=== PATIENT | male | born 1940 | race Caucasian/White ===

== ENCOUNTER 2017-09-01 11:34 | Day surgery (SDC) | payer MEDICARE ==
[~2017-09-01] VITALS: Ht 162.6 cm; Wt 73.5 kg
[2017-09-01 11:33] VITALS: BP 138/86
[~2017-09-01 11:34] MED LIST: ALLO100T PO; AMLO10TA2 PO; AMLO5TAB2 PO; APIX5TAB PO; ASPI-586 PO; HCT25T PO; HYDR-34 PO; HYDROCHLOROT PO; LEVO50TA6 PO; LORA-404 PO; LVT.025T PO; LVT.05T PO; METO-272 PO; METO-370 PO; METO25TA PO; MTP25TSR PO; OMEP40CA36 PO; PRAV40TA PO; PRAV40TA2 PO; PRAV80TA2 PO
[2017-09-01] MEDS ORDERED: ceFAZolin 1 GM/NS 50 ML IVPB IV ONE ×2 (12:00)
[2017-09-01] MEDS ORDERED: oxyCODONE ER 10 MG (OxyCONTIN CR) TAB PO ONE ×2 (12:30→17:30)
[2017-09-01] MEDS ORDERED: PREGABALIN 75 MG (LYRICA) CAP PO ONE ×2 (12:30→17:30)
[2017-09-01] MEDS ORDERED: CELECOXIB 100 MG (CeleBREX) CAP PO ONE ×2 (12:30→17:30)
[2017-09-01] MEDS ORDERED: KETOROLAC 30 MG/ML VIAL IV SCH (12:30)
[2017-09-01] MEDS ORDERED: morphine INJ 10 MG/ML 1ML (SYR OR VIAL) IV PRN ×2 (12:30→17:30)
[2017-09-01] MEDS ORDERED: ACETAMINOPHEN 500 MG TAB (TYLENOL) PO ONE ×2 (12:30→17:30)
--- NOTE | 2017-09-01 12:52 | Progress Note-Pre Operative ---
Pre-Operative Progress Note H&P Reviewed The H&P was reviewed, patient examined and no changes noted. Date Seen by Provider: Aug 05, 2017 Time Seen by Provider: 15:00 Date H&P Reviewed: Sep 01, 2017 Time H&P Reviewed: 12:52 Pre-Operative Diagnosis: Ventral hernia. Right inguinal hernia LEX WILKERSON MD Sep 01, 2017 12:52 pm
[2017-09-01] MEDS ORDERED: MIDAZOLAM 2 MG/2 ML (VERSED) VIAL ONE ×2 (13:09→13:39)
[2017-09-01] MEDS ORDERED: MIDAZOLAM 2 MG/2 ML (VERSED) VIAL IV ONE (13:15)
[2017-09-01] MEDS: LACTATED RINGERS 1,000 ML IV PRN ×3 (13:22→16:55)
[2017-09-01] MEDS ORDERED: LIDOCAINE PF 2% 5 ML (XYLOCAINE) VIAL ONE (13:38)
[2017-09-01] MEDS ORDERED: proPOfol 200 MG/20 ML (DIPRIVAN) VIAL IV ONE (13:38)
[2017-09-01] MEDS ORDERED: SUCCINYLCHOLINE INJ 100 MG/5 ML SYR ONE (13:38)
[2017-09-01] MEDS ORDERED: SEVOFLURANE (ULTANE) 15 ML INHAL SOLN ONE ×10 (13:40→16:46)
[2017-09-01] MEDS ORDERED: KETAMINE HCL 100 MG/ML 5 ML VIAL ONE (13:41)
[2017-09-01] MEDS ORDERED: BUP/EPI 0.5% 1:200,000 (MARCAINE) 10ML VIAL IJ ONE (13:44)
[2017-09-01] MEDS ORDERED: ROCURONIUM 50 MG/5 ML (ZEMURON) VIAL IV ONE (14:33)
[2017-09-01] MEDS ORDERED: NEOSTIGMINE (BLOXIVERZ ) 1 MG/1ML 10 ML VIAL ONE (16:52)
[2017-09-01] MEDS ORDERED: GLYCOPYRROLATE 0.2 MG/ML (ROBINUL) 2 ML VIAL ONE (16:52)
[2017-09-01] MEDS ORDERED: MEPERIDINE (DEMEROL) INJ 50 MG/ML ONE (17:17)
--- NOTE | 2017-09-01 17:24 | Operative Report ---
Operative Report Date of Procedure/Surgery Sep 01, 2017 Surgeon (s) LEX WILKERSON MD Hot Blaster (s): N/A Post-Operative Diagnosis Same Procedure Performed 1. Robotic assisted repair of right inguinal hernia with mesh 2. Robotic assisted repair of ventral hernia with mesh Description of Procedure Anesthesia Type: General Estimated blood loss (mL): Minimal Specimen(s) collected/removed None Description of the Procedure Indication for procedures: This gentleman presented with a symptomatic right inguinal hernia and a ventral hernia, superior to his umbilicus. He was offered minimally invasive repair with robotic assistance and mesh reinforcement. Informed consent was obtained after reviewing the operative details and complications of hematoma, infection of the mesh, recurrence of the hernia and cardiorespiratory dysfunction. Description of the procedures: 1. Robotic assisted repair of right inguinal hernia with mesh: He was placed supine on the operative table and general anesthesia induced using an endotracheal tube. A gram of Ancef was administered intravenously as prophylaxis against wound infection. Sequential compression devices were placed around his legs, to minimize the risk of venous thrombosis. A Rivera catheter was placed to decompress the bladder during surgery. It was removed at the end of the operation. Abdomen was prepared and draped in the usual sterile manner. Pneumoperitoneum was established using a Veress needle introduced over the right subcostal margin , along the mid-clavicular line. Intra-abdominal pressure was maintained at 15 mmHg, using carbon dioxide insufflation. A 12 mm trocar was placed and anatomy visualized using the 30, 3-dimensional, high definition laparoscope associated with da Valencell system. A direct inguinal hernia and the ventral hernia containing omentum were confirmed. Under direct view, I placed an 8 mm trocar over each side of the abdomen and the patient was turned into steep Trendelenburg position, to displace loops of bowel out of the pelvis. Peritoneum was incised laterally, extending across to the midline using the hook cautery, entering the preperitoneal space. The hernia sac was completely reduced out of the inguinal canal and the defect closed using a 20VLOC suture with the robotic assistance. It was then reinforced with the polypropylene mesh, preshaped to fit into the preperitoneal space, measuring 10.6 cm in length by 6 cm in width. It was secured to Eric' s ligament and the lateral abdominal muscles with 2-0 Vicryl sutures with the robotic assistance. Intra-abdominal pressure was then reduced to 12 mmHg, to facilitate closing the peritoneum without any tension. This was completed using 20VLOC sutures with the robotic assistance. We then turned our attention to the ventral hernia. 2. Robotic assisted repair of ventral hernia with mesh: The robotic system was undocked, in preparation for positioning the patient. An additional 12 mm trocar was placed over the right side of the abdomen, along the midaxillary line robotic system was then docked in place. Omentum was taken down using the hook cautery, revealing a defect measuring about 2 cm in diameter. It was closed using 0V LOC suture(nonabsorbable) with robotic assistance. The repair was then reinforced with polypropylene mesh assuring 15.2 cm in length by 10.5 cm in width. The mesh was held up using a self-retaining balloon system and secured to the abdominal musculature with 20V LOC sutures, using robotic assistance. Hemostasis was satisfactory and the operation concluded. The fascia over each of the incisions was closed using #1 Vicryl. Skin incisions were closed with 4-0 Vicryl, in a subcuticular fashion. 0.5 percent Marcaine with epinephrine was infiltrated along the incisions, both pre- preemptively and at the conclusion of the operation. He tolerated the procedure well, was extubated in the operating room and taken to the recovery room in a stable condition. Findings of the Procedure See op report Allergies and Home Medications Allergies Coded Allergies: apixaban (Unverified Allergy, Intermediate, RASH, 09/01/17) Home Medications Allopurinol 100 Mg Tablet, 100 MG PO DAILY, (Reported) Amlodipine Besylate 10 Mg Tablet, 10 MG PO DAILY, (Reported) Aspirin 81 Mg Tablet.dr, 81 MG PO DAILY, (Reported) Levothyroxine Sodium 50 Mcg Tablet, 50 MCG PO DAILY, (Reported) Lorazepam 0.5 Mg Tablet, 0.5 MG PO BID, (Reported) Metoprolol Succinate 50 Mg Tab.er.24h, 50 MG PO DAILY, (Reported) Omeprazole 40 Mg Capsule.dr, 40 MG PO DAILY, (Reported) Pravastatin Sodium 40 Mg Tablet, 40 MG PO EVENING, (Reported) LEX WILKERSON MD Sep 01, 2017 5:24 pm
[2017-09-01] MEDS ORDERED: HYDR-3812 PO (17:27)
--- NOTE | 2017-09-01 17:28 | Discharge Inst-Simple/Standard ---
Discharge Inst-Standard Discharge Medications New, Converted or Re-Newed RX: RX on Chart Patient Instructions/Follow Up Plan of Care/Instructions/FU: Band-Aids off in 48 hours. Follow-up in 4 weeks. To use the abdominal binder while moving around, for 3 weeks Activity as Tolerated: No Goal: No lifting over 10 pounds Discharge Diet: No Restrictions LEX WILKERSON MD Sep 01, 2017 5:28 pm
[2017-09-01] MEDS ORDERED: ONDANSETRON 4 MG/2 ML (SDV) Z0FRAN IVP PRN (17:30)
[2017-09-01] MEDS ORDERED: morphine INJ 10 MG/ML 1ML (SYR OR VIAL) IVP PRN (17:30)
[2017-09-01] MEDS ORDERED: MEPERIDINE (DEMEROL) INJ 50 MG/ML IVP PRN (17:30)
[2017-09-01 18:35] VITALS: BP 118/64
[2017-09-01 19:19] VITALS: BP 122/69
[2017-09-01] MEDS ORDERED: LORazepam 1 MG (ATIVAN) TAB PO PRN ×3 (22:15)
[2017-09-01] MEDS ORDERED: D5 1/2 NS 1000 ML IV SOLUTION 1,000 ML IV PRN (22:15)
[2017-09-01] MEDS ORDERED: SENNA W/DOCUSATE (SENOKOT S) TABLET PO PRN (22:15)
[2017-09-01] MEDS ORDERED: LORazepam INJ 2 MG/ML (ATIVAN) VIAL IV PRN ×4 (22:15)
[2017-09-01] MEDS ORDERED: ANTACID SUSP 30 ML UDC (MYLANTA) PO PRN (22:15)
[2017-09-01] MEDS ORDERED: ONDANSETRON 4 MG/2 ML (SDV) Z0FRAN IV PRN (22:15)
[2017-09-02] VITALS: BP 132/76
[2017-09-02 04:00] VITALS: BP 133/85
[2017-09-02] MEDS ORDERED: THIAMINE 100 MG (VITAMIN B-1) TAB PO SCH (07:00)
[2017-09-02] MEDS ORDERED: MULTIVIT W/MINERALS TAB (THERAGRAN M) PO SCH (07:00)
[2017-09-02 07:30] VITALS: BP 129/74
[2017-09-02] MEDS ORDERED: MAGNESIUM OXIDE (MAG-OX)400 MG TAB PO SCH (09:00)
[2017-09-02] MEDS ORDERED: FOLIC ACID 1 MG TAB PO SCH (09:00)
--- NOTE | 2017-09-02 09:31 | Progress Note-Standard ---
Standard Progress Note Progress Notes/Assess & Plan Date Seen by Provider: Sep 02, 2017 Time Seen by Provider: 09:31 Progress/Assessment & Plan doing well. Could be discharged home. Final Diagnosis right inguinal hernia. Ventral hernia LEX WILKERSON MD Sep 02, 2017 9:31 am
== END 2017-09-02 11:40 | disposition home or self-care (01) ==
LOC: SDC 11:34 → 4TH 18:30 → SDC 09-02 11:40
PROVIDERS: ATTEND Surgery
DX: K40.90 Unilateral inguinal hernia, without obstruction or gangrene, not specified as recurrent (principal); K43.9 Ventral hernia without obstruction or gangrene; I10 Essential (primary) hypertension; E78.5 Hyperlipidemia, unspecified; K21.9 Gastro-esophageal reflux disease without esophagitis; E03.9 Hypothyroidism, unspecified; Z79.899 Other long term (current) drug therapy
CPT/HCPCS: 94664

== ENCOUNTER → 2018-05-11 | Outpatient (CLI) | payer MEDICARE ==
[~2018-05-11] MED LIST changes: +ACHD5005 PO
--- NOTE | 2018-05-11 10:56 | Diagnostic Imaging Report ---
INDICATION: Chronic low back pain. AP and lateral views of the lumbar spine are obtained. FINDINGS: There is mild left convexity curvature of lower lumbar spine. There is diffuse disc space narrowing and prominent endplate spurring most pronounced from L3 through S1. Associated degenerative facet arthropathy greater on the right at L4-L5 and L5-S1. No fracture is seen. IMPRESSION: Lower lumbar degenerative disc disease and degenerative facet arthropathy at L4-L5 and L5-S1, greater on the right. No definite acute abnormality is seen. Dictated by: Dictated on workstation # [id number]
== END ==
LOC: RAD 10:34
PROVIDERS: ATTEND Family Medicine
DX: M51.36 Other intervertebral disc degeneration, lumbar region (principal); M46.86 Other specified inflammatory spondylopathies, lumbar region
CPT/HCPCS: 72100

== ENCOUNTER → 2018-06-02 | Outpatient (CLI) | payer MEDICARE ==
--- NOTE | 2018-06-02 12:51 | Diagnostic Imaging Report ---
PROCEDURE: MRI lumbar spine. TECHNIQUE: Multiplanar, multisequence MRI of the lumbar spine was performed without contrast. INDICATION: Chronic low back pain. COMPARISON: No prior MRI of the lumbar spine is available for comparison. FINDINGS: Curvature of the lumbar spine is normal. There is minimal anterolisthesis of L5 on S1. The vertebral body heights and marrow signal are normal. No acute compression fracture is detected. There is multilevel degenerative disc disease with variable disc space narrowing and desiccation. The conus is unremarkable at the T12-L1 level. T12-L1: The central canal is widely patent. Neuroforamina are patent. L1-L2: Unremarkable. L2-L3: Central canal is widely patent. Mild left neuroforaminal narrowing is seen due to left far lateral broad-based disc/osteophyte complex. Right neuroforamen is patent. L3-L4: There is broad-based disc/osteophyte complex flattening the ventral thecal sac. There are also degenerative facet changes. No significant neuroforaminal or central canal stenosis is seen, however. L4-L5: There is broad-based disc/osteophyte complex and facet changes noted. There is moderate right neuroforaminal stenosis due to right far lateral broad-based disc/osteophyte complex. Central canal and left neuroforamen are patent. L5-S1: Degenerative facet changes are noted. Central canal is widely patent. There is moderate left and mild right neuroforaminal stenosis. The paraspinous tissues are unremarkable. IMPRESSION: Multilevel lumbar spondylosis with multilevel neuroforaminal stenosis, described level by level above. No acute compression fracture is seen. Dictated by: Dictated on workstation # [id number]
== END ==
LOC: RAD 11:26
PROVIDERS: ATTEND Physician Assistant
DX: M99.72 Connective tissue and disc stenosis of intervertebral foramina of thoracic region (principal); M51.36 Other intervertebral disc degeneration, lumbar region; M47.816 Spondylosis without myelopathy or radiculopathy, lumbar region
CPT/HCPCS: 72148

== ENCOUNTER 2018-07-15 08:15 | Outpatient (RCR) | payer MEDICARE ==
[~2018-07-15 08:15] MED LIST changes: -AMLO10TA2 PO; +AMLO10TA6 PO
== END 2018-07-17 | disposition home or self-care (01) ==
PROVIDERS: ATTEND Orthopaedic Surgery Orthopaedic Surgery of the Spine
DX: M54.16 Radiculopathy, lumbar region (principal)

== ENCOUNTER 2018-08-05 08:26 | Outpatient (RCR) | payer MEDICARE | END 2018-08-05 09:54 | disposition home or self-care (01) | PROVIDERS: ATTEND Orthopaedic Surgery Orthopaedic Surgery of the Spine | DX: M54.16 Radiculopathy, lumbar region (principal) ==

== ENCOUNTER → 2019-04-17 | Outpatient (CLI) | payer MEDICARE ==
[~2019-04-17] MED LIST changes: -AMLO10TA6 PO; +AMLO10TA7 PO
--- NOTE | 2019-04-17 11:48 | Diagnostic Imaging Report ---
INDICATION: Weight loss Comparison made with prior examination 03/20/2015. PA and lateral views were obtained. FINDINGS: The heart size, mediastinal configuration, and pulmonary vascularity are within normal limits. There is no pleural effusion, pneumothorax, or pneumonia. The osseous structures are unremarkable. IMPRESSION: No acute cardiopulmonary abnormality. Dictated by: Dictated on workstation # [id number]
== END ==
LOC: RAD 11:19
PROVIDERS: ATTEND Nurse Practitioner Family
DX: R63.4 Abnormal weight loss (principal)
CPT/HCPCS: 71046

== ENCOUNTER → 2019-04-28 | Outpatient (CLI) | payer MEDICARE ==
--- NOTE | 2019-04-28 13:51 | Diagnostic Imaging Report ---
PROCEDURE: MR imaging of the brain without contrast. TECHNIQUE: Multiplanar, multisequence MR imaging of the brain was performed without contrast. INDICATION: Dizzy spells, falls, mainly when bending over or standing up. Gait instability. CORRELATION STUDY: None. FINDINGS: Generalized atrophic changes with prominence of the ventricles and sulci. There are scattered areas of hyperintense T2 signal change, nonspecific but favor likely mild changes of small vessel ischemic disease or senescent-type changes. There is no restricted area of diffusion to suggest an acute area of infarct. No significant gradient echo signal abnormality. The posterior fossa demonstrates no acute findings. The cerebellopontine angles appear unremarkable. Visualized portions of the seventh and eighth cranial nerves appear unremarkable. There is a mildly prominent rightward course of the basilar artery. Normal expected intracranial flow voids. The craniocervical junction as well as midline structures including sella are unremarkable. IMPRESSION: 1. Negative for acute intracranial abnormality. Generalized age-related changes are suggested. Dictated by: Dictated on workstation # [id number]
== END ==
LOC: RAD 11:44
PROVIDERS: ATTEND Nurse Practitioner Family
DX: R42 Dizziness and giddiness (principal); R26.89 Other abnormalities of gait and mobility; R29.6 Repeated falls
CPT/HCPCS: 70551

== ENCOUNTER → 2019-10-27 | Outpatient (CLI) | payer MEDICARE ==
[~2019-10-27] MED LIST changes: -METO-370 PO; +METO50TA7 PO; +OMEP40CA27 PO
--- NOTE | 2019-10-27 14:57 | Diagnostic Imaging Report ---
PROCEDURE: MRI lumbar spine. TECHNIQUE: Multiplanar, multisequence MRI of the lumbar spine was performed without contrast. INDICATION: Low back pain and right hip pain. Correlation is made with prior MRI of the lumbar spine from 06/02/2018. FINDINGS: Curvature of the lumbar spine is normal. There is minimal anterolisthesis of L5 on S1. Vertebral body heights are well maintained. The marrow signal intensity is unremarkable apart from occasional benign hemangiolipomas. No acute compression fracture is detected. There is generalized degenerative disc disease with variable disc space narrowing and desiccation. This is similar to prior exam. The conus is unremarkable at the T12-L1 level. T12-L1: Central canal is patent. Neural foramina are patent. L1-L2: Central canal and neural foramina are widely patent. L2-L3: Central canal is patent. There appears to be some narrowing of the lateral recesses bilaterally. There continues to be moderate left neuroforaminal narrowing. Right neural foramen is patent. L3-L4: Broad-based disc/osteophyte complex flattens the ventral thecal sac. Central canal is patent. Left neural foramen is patent. There may be mild right neuroforaminal narrowing due to endplate osteophytes. L4-L5: A broad-based disc/osteophyte complex significantly narrows the right lateral recess as well as moderate right neuroforaminal stenosis. Left neural foramen and central canal are patent. There are hypertrophic facet changes. L5-S1: Central canal is patent. There are degenerative facet changes. Moderate left and mild right neuroforaminal stenosis is seen. Paraspinous tissues are unremarkable. IMPRESSION: Multilevel lumbar spondylosis with multilevel lateral recess and neuroforaminal stenosis described level by level above. No significant central canal stenosis is seen. No acute compression fracture is identified. Overall appearance of the lumbar spine is very similar to prior MRI from 06/02/2018. Dictated by: Dictated on workstation # [id number]
== END ==
LOC: RAD 12:45
PROVIDERS: ATTEND Physician Assistant
DX: M48.07 Spinal stenosis, lumbosacral region (principal); M47.816 Spondylosis without myelopathy or radiculopathy, lumbar region; M51.36 Other intervertebral disc degeneration, lumbar region
CPT/HCPCS: 72148

== ENCOUNTER 2021-10-25 20:43 | Emergency (ER) | payer MEDICARE ==
[~2021-10-25] VITALS: Ht 170 cm; Wt 68.0 kg
[~2021-10-25 20:43] MED LIST changes: +AMLO-251 PO; -AMLO10TA7 PO; -OMEP40CA27 PO; +OMEP40CA6 PO
[2021-10-25 21:23] LABS: BASOPHILS % (AUTO) 0 % (0-10); EOSINOPHILS # (AUTO) 0.1 10^3/uL (0.0-0.3); EOSINOPHILS % (AUTO) 1 % (0-10); HEMATOCRIT 44 % (40-54); HEMOGLOBIN 14.9 g/dL (13.3-17.7); LYMPHOCYTES # (AUTO) 2.3 10^3/uL (1.0-4.0); LYMPHOCYTES % (AUTO) 23 % (12-44); MEAN CORPUSCULAR HEMOGLOBIN 33 pg (25-34); MEAN CORPUSCULAR HGB CONC 34 g/dL (32-36); MEAN CORPUSCULAR VOLUME 97 fL (80-99); MEAN PLATELET VOLUME 9.8 fL (9.0-12.2); MONOCYTES % (AUTO) 10 % (0-12); NEUTROPHILS # (AUTO) 6.7 10^3/uL (1.8-7.8); NEUTROPHILS % (AUTO) 66 % (42-75); PLATELET COUNT 232 10^3/uL (130-400); WHITE BLOOD COUNT 10.2 10^3/uL (4.3-11.0)
--- NOTE | 2021-10-25 21:34 | ED Upper Extremity ---
General Chief Complaint: Upper Extremity Stated Complaint: L ARM SWELLING, WARM,TENDER Nursing Triage Note: patient verbalized x3 months weakness and tingling in rt arm. states Wednesday morning, swelling in wrist. Source: patient Exam Limitations: no limitations (KP CHRISTIANSEN APRN) History of Present Illness Date Seen by Provider: Oct 25, 2021 Time Seen by Provider: 21:32 Initial Comments To ER with pain redness and swelling to the right wrist that began yesterday. 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 No fevers or chills no injury. History of blood clot in one of his legs remotely. Not currently on any anticoagulants. Onset: just prior to arrival Severity: moderate Pain/Injury Location: right wrist Method of Injury: unknown Modifying Factors: Worse With Movement (KP CHRISTIANSEN APRN) Allergies and Home Medications Allergies Coded Allergies: apixaban (Unverified Allergy, Intermediate, RASH, 09/01/17) Patient Home Medication List Home Medication List Reviewed: Yes (KP CHRISTIANSEN APRN) Allopurinol (Allopurinol) 100 Mg Tablet, 100 MG PO DAILY, (Reported) Entered as Reported by: VALORIE LEDEZMA on 08/26/17 1043 Amlodipine Besylate (Amlodipine Besylate) 10 Mg Tablet, 10 MG PO DAILY, (Reported) Entered as Reported by: VALORIE LEDEZMA on 08/26/17 1043 Aspirin (Aspir 81) 81 Mg Tablet.dr, 81 MG PO DAILY, (Reported) Entered as Reported by: VALORIE LEDEZMA on 08/26/17 1043 Hydrocodone Bit/Acetaminophen (Lortab 5 Mg Tablet) 1 Each Tablet, 1-2 TAB PO 4- 6HR PRN for PAIN Prescribed by: LEX WILKERSON on 09/01/17 1727 Levothyroxine Sodium (Levothyroxine Sodium) 50 Mcg Tablet, 50 MCG PO DAILY, (R eported) Entered as Reported by: VALORIE LEDEZMA on 08/26/17 1043 Lorazepam (Ativan) 0.5 Mg Tablet, 0.5 MG PO BID, (Reported) Entered as Reported by: VALORIE LEDEZMA on 08/26/17 1043 Metoprolol Succinate (Metoprolol Succinate) 50 Mg Tab.er.24h, 50 MG PO DAILY, (Reported) Entered as Reported by: VALORIE LEDEZMA on 08/26/17 1043 Omeprazole (Omeprazole) 40 Mg Capsule.dr, 40 MG PO DAILY, (Reported) Entered as Reported by: VALORIE LEDEZMA on 08/26/17 1043 Pravastatin Sodium (Pravastatin Sodium) 40 Mg Tablet, 40 MG PO EVENING, (Reported) Entered as Reported by: VALORIE LEDEZMA on 08/26/17 1043 Review of Systems Constitutional: see HPI EENTM: see HPI Respiratory: no symptoms reported Cardiovascular: no symptoms reported Genitourinary: no symptoms reported Musculoskeletal: see HPI Skin: see HPI Psychiatric/Neurological: No Symptoms Reported (KP CHRISTIANSEN APRN) Past Equmsff-Lciewl-Ogqydp Hx Immunizations Up To Date First/Initial COVID19 Vaccinat: yes Second COVID19 Vaccination Lamont: yes (KP CHRISTIANSEN APRN) Seasonal Allergies Seasonal Allergies: Yes (MILD) (KP CHRISTIANSEN APRN) Past Medical History Deep Vein Thrombosis, High Cholesterol, Hypertension Reproductive Disorders: No Sexually Transmitted Disease: No HIV/AIDS: No Kidney Stones Diverticulosis, Polyps Chronic Back Pain Loss of Vision: Denies Hearing Impairment: Denies Adverse Reaction/Blood Tranf: No (N/A) (KP CHRISTIANSEN APRN) Family Medical History Abdominal aortic aneurysm G8 BROTHER (BRAIN ANEURSYM) Cardiovascular disease 19 FATHER 19 MOTHER Completed stroke 19 MOTHER Drug abuse G8 BROTHER Hypertension 19 FATHER 19 MOTHER G8 BROTHER Myocardial infarction 19 FATHER No Family History of: AIDS El's disease Alcoholism Alzheimer's disease Arthritis Asthma Cataracts Colon cancer Dementia Diabetes mellitus Dysphasia Glaucoma Kidney disease Parkinson's disease Prostate cancer Psychosocial problem Respiratory disorder Seizure disorder Severe allergy Thyroid disease Tuberculosis Heart Disease, Hypertension, Stroke, Vascular Disease (KP CHRISTIANSEN APRN) Physical Exam Vital Signs Vital Signs - First Documented 10/25/21 21:13 Temp 36.9 Pulse 92 Resp 20 B/P (MAP) 117/68 (84) Pulse Ox 94 O2 Delivery Room Air (BENNY,ERIC K DO) Vital Signs Capillary Refill : Less Than 3 Seconds (KP CHRISTIANSEN APRN) Height, Weight, BMI Height: 5'4.00" Weight: 162lbs. 2.0oz. [id number]; 23.00 BMI Method:Stated General Appearance: WD/WN, no apparent distress HEENT: PERRL/EOMI, normal ENT inspection Respiratory: no respiratory distress, no accessory muscle use Gastrointestinal: normal bowel sounds, non tender, soft Shoulder: normal inspection, non-tender Elbow/Forearm: normal inspection, non-tender, Right Wrist: Yes limited ROM, Yes pain, Yes soft tissue tenderness, Yes swelling (Erythema tenderness to palpation without open wound. This is confined to the dorsal aspect of the right wrist. The volar aspect has a normal appearance. There is no erythema or swelling proximal to the wrist. The hand itself is not involved and is without swelling.) Hand: normal inspection, non-tender Neurologic/Psychiatric: alert, normal mood/affect, oriented x 3 Skin: normal color, warm/dry (KP CHRISTIANSEN APRN) Progress/Results/Core Measures Results/Orders Lab Results Laboratory Tests Test 10/25/21 21:19 Range/Units White Blood Count 10.2 4.3-11.0 10^3/uL Red Blood Count 4.55 4.30-5.52 10^6/uL Hemoglobin 14.9 13.3-17.7 g/dL Hematocrit 44 40-54 % Mean Corpuscular Volume 97 80-99 fL Mean Corpuscular Hemoglobin 33 25-34 pg Mean Corpuscular Hemoglobin Concent 34 32-36 g/dL Red Cell Distribution Width 13.9 10.0-14.5 % Platelet Count 232 130-400 10^3/uL Mean Platelet Volume 9.8 9.0-12.2 fL Immature Granulocyte % (Auto) 0 % Neutrophils (%) (Auto) 66 42-75 % Lymphocytes (%) (Auto) 23 12-44 % Monocytes (%) (Auto) 10 0-12 % Eosinophils (%) (Auto) 1 0-10 % Basophils (%) (Auto) 0 0-10 % Neutrophils # (Auto) 6.7 1.8-7.8 10^3/uL Lymphocytes # (Auto) 2.3 1.0-4.0 10^3/uL Monocytes # (Auto) 1.0 0.0-1.0 10^3/uL Eosinophils # (Auto) 0.1 0.0-0.3 10^3/uL Basophils # (Auto) 0.0 0.0-0.1 10^3/uL Immature Granulocyte # (Auto) 0.0 0.0-0.1 10^3/uL D-Dimer 1.32 H 0.00-0.49 UG/ML Sodium Level 136 135-145 MMOL/L Potassium Level 3.7 3.6-5.0 MMOL/L Chloride Level 97 L 98-107 MMOL/L Carbon Dioxide Level 21 21-32 MMOL/L Anion Gap 18 H 5-14 MMOL/L Blood Urea Nitrogen 13 7-18 MG/DL Creatinine 0.92 0.60-1.30 MG/DL Estimat Glomerular Filtration Rate 79 BUN/Creatinine Ratio 14 Glucose Level 102 70-105 MG/DL Calcium Level 9.6 8.5-10.1 MG/DL (ERIC ZAPATA DO) Medications Given in ED Current Medications Medications Dose Ordered Sig/Solange Route Start Time Stop Time Status Last Admin Dose Admin Acetaminophen/ Hydrocodone Bitart 1 ea Q4H PRN PO 10/25/21 22:15 10/25/21 22:28 DC 10/25/21 22:27 1 EA Colchicine 1.8 mg ONCE ONCE PO 10/25/21 22:15 10/25/21 22:16 DC 10/25/21 22:27 1.8 MG (BENNYTIANNAA Anil VERAS) Vital Signs/I&O 10/25/21 10/25/21 21:13 22:27 Temp 36.9 36.9 Pulse 92 92 Resp 20 20 B/P (MAP) 117/68 (84) 117/68 Pulse Ox 94 94 O2 Delivery Room Air Room Air (BENNYTIANNAA K DO) Blood Pressure Mean: 84 Departure Communication (Admissions) Not have the appearance of a DVT has only the dorsum of the wrist is erythematous and swollen. The fingers are spared and the remainder of the arm is spared. 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 Supporting this, reports that he is quite a heavy drinker of alcohol. (KP CHRISTIANSEN APRN) Impression Primary Impression: Gout of right wrist Disposition: 01 HOME, SELF-CARE Condition: Stable Departure-Patient Inst. Decision time for Depature: 22:07 (KP CHRISTIANSEN APRN) Referrals: ALISON SHAH MD (PCP/Family) Primary Care Physician Patient Instructions: Gout (DC) Add. Discharge Instructions: 1. Wear the splint for comfort. Take the hydrocodone for pain as directed. Do not mix with this with any alcohol. Take the colchicine tablet 1 hour after you get home. All discharge instructions reviewed with patient and/or family. Voiced understanding. ATTENDING PHYSICIAN NOTE: I WAS PHYSICALLY PRESENT ER PHYSICIAN WHEN THIS PATIENT WAS IN ER, BUT I WAS NOT INVOLVED IN ANY DECISION MAKING OR ANY CARE OF THIS PATIENT. (ERIC ZAPATA DO) KP CHRISTIANSEN APRN Oct 25, 2021 21:34 ERIC ZAPATA DO Oct 26, 2021 00:30
[2021-10-25 21:48] LABS: POTASSIUM 3.7 MMOL/L (3.6-5.0)
[2021-10-25 21:49] LABS: CALCIUM 9.6 MG/DL (8.5-10.1)
[2021-10-25 21:54] LABS: CREATININE SERUM 0.92 MG/DL (0.60-1.30)
[2021-10-25] MEDS ORDERED: COLCHICINE 0.6 MG (COLCRYS) TABLET PO ONE (22:15)
[2021-10-25 22:27] VITALS: BP 117/68
--- NOTE | 2021-10-25 22:36 | Diagnostic Imaging Report ---
INDICATION: Right wrist pain, swelling. COMPARISON: None. EXAMINATION: Three views of the right wrist. FINDINGS: Moderate degenerative joint disease. There is no bony erosion, fracture or dislocation. Atherosclerotic disease is seen in the radial artery. IMPRESSION: No acute fracture or dislocation. Dictated by: Dictated on workstation # [id number]
== END 2021-10-25 22:28 | disposition home or self-care (01) ==
LOC: EDUNIT# 20:43 → ER 20:49
DX: M10.9 Gout, unspecified (principal); I10 Essential (primary) hypertension; E78.00 Pure hypercholesterolemia, unspecified; G89.29 Other chronic pain; M54.9 Dorsalgia, unspecified; Z79.899 Other long term (current) drug therapy; Z79.82 Long term (current) use of aspirin; Z79.891 Long term (current) use of opiate analgesic
CPT/HCPCS: 36415; 73110; 80048; 85025; 85379

== ENCOUNTER 2022-04-09 14:32 | Inpatient (IN) | payer MEDICARE ==
[~2022-04-09] VITALS: Ht 162.6 cm; Wt 71.9 kg
--- NOTE | 2022-04-09 14:52 | ED General ---
General Stated Complaint: BRADYCARDIA Source of Information: Patient Exam Limitations: No Limitations History of Present Illness Date Seen by Provider: Apr 09, 2022 Time Seen by Provider: 14:40 Initial Comments Patient is an 81-year-old male who presents to the emergency department referred by his primary care physician for profound bradycardia, suspicion for third- degree AV block. Patient states that he started noticing some swelling in his ankles and lower legs about a week ago today. He went to his doctor, he states that they changed his amlodipine from 10 mg to 5 mg. He had persistent swelling and followed up today where he states his doctor cut his metoprolol succinate ER dose from 50-25 and sent him to the ER. Patient denies any chest pain. He is not really short of breath. No recent illnesses, no fevers, chills, cough or congestion. He has chronic urinary complaints with frequency and hesitancy. No diarrhea. He has a blood pressure of 137/67 and his heart rate is anywhere from 32 to 35 bpm. He has not started any other new medications. I did verify his med list with [facility] and he takes levothyroxine 50 mcg daily, amlodipine 5 mg pravastatin 40 mg omeprazole 40. Patient is currently in no acute distress, room air sats are 97%. All other review of systems reviewed and negative except as stated. Timing/Duration: 1 Week Severity: Moderate Modifying Factors: worse with Movement Allergies and Home Medications Allergies Coded Allergies: apixaban (Unverified Allergy, Intermediate, RASH, 09/01/17) Patient Home Medication List Home Medication List Reviewed: Yes Allopurinol (Allopurinol) 100 Mg Tablet, 100 MG PO DAILY, (Reported) Entered as Reported by: VALORIE LEDEZMA on 08/26/17 1043 Amlodipine Besylate (Amlodipine Besylate) 10 Mg Tablet, 10 MG PO DAILY, (Reported) Entered as Reported by: VALORIE LEDEZMA on 08/26/17 1043 Aspirin (Aspir 81) 81 Mg Tablet.dr, 81 MG PO DAILY, (Reported) Entered as Reported by: VALORIE LEDEZMA on 08/26/17 1043 Hydrocodone Bit/Acetaminophen (Lortab 5 Mg Tablet) 1 Each Tablet, 1-2 TAB PO 4- 6HR PRN for PAIN Prescribed by: LEX WILKERSON on 09/01/17 1727 Levothyroxine Sodium (Levothyroxine Sodium) 50 Mcg Tablet, 50 MCG PO DAILY, (Reported) Entered as Reported by: VALORIE LEDEZMA on 08/26/17 1043 Lorazepam (Ativan) 0.5 Mg Tablet, 0.5 MG PO BID, (Reported) Entered as Reported by: VALORIE LEDEZMA on 08/26/17 1043 Metoprolol Succinate (Metoprolol Succinate) 50 Mg Tab.er.24h, 50 MG PO DAILY, (Reported) Entered as Reported by: VALORIE LEDEZMA on 08/26/17 1043 Omeprazole (Omeprazole) 40 Mg Capsule.dr, 40 MG PO DAILY, (Reported) Entered as Reported by: VALORIE LEDEZMA on 08/26/17 1043 Pravastatin Sodium (Pravastatin Sodium) 40 Mg Tablet, 40 MG PO EVENING, (Reported) Entered as Reported by: VALORIE LEDEZMA on 08/26/17 1043 Review of Systems Review of Systems Constitutional: see HPI EENTM: no symptoms reported Respiratory: short of breath (minimal) Cardiovascular: no symptoms reported Gastrointestinal: no symptoms reported Genitourinary: other (prostate issues) Musculoskeletal: other (leg swelling) Skin: no symptoms reported Psychiatric/Neurological: No Symptoms Reported All Other Systems Reviewed Negative Unless Noted: Yes Past Teconmv-Vxysxh-Hnuauf Hx Immunizations Up To Date First/Initial COVID19 Vaccinat: yes Second COVID19 Vaccination Lamont: yes Seasonal Allergies Seasonal Allergies: Yes (MILD) Past Medical History Deep Vein Thrombosis, High Cholesterol, Hypertension Reproductive Disorders: No Sexually Transmitted Disease: No HIV/AIDS: No Kidney Stones Diverticulosis, Polyps Chronic Back Pain Loss of Vision: Denies Hearing Impairment: Denies Adverse Reaction/Blood Tranf: No (N/A) Family Medical History Abdominal aortic aneurysm G8 BROTHER (BRAIN ANEURSYM) Cardiovascular disease 19 FATHER 19 MOTHER Completed stroke 19 MOTHER Drug abuse G8 BROTHER Hypertension 19 FATHER 19 MOTHER G8 BROTHER Myocardial infarction 19 FATHER No Family History of: AIDS El's disease Alcoholism Alzheimer's disease Arthritis Asthma Cataracts Colon cancer Dementia Diabetes mellitus Dysphasia Glaucoma Kidney disease Parkinson's disease Prostate cancer Psychosocial problem Respiratory disorder Seizure disorder Severe allergy Thyroid disease Tuberculosis Heart Disease, Hypertension, Stroke, Vascular Disease Physical Exam Vital Signs Vital Signs - First Documented 6/23/22 14:38 Temp 36.2 Pulse 34 Resp 17 B/P (MAP) 159/75 (103) Pulse Ox 96 O2 Delivery Room Air Capillary Refill : Height, Weight, BMI Height: 5'4.00" Weight: 162lbs. 2.0oz. 73.358005ds; 23.00 BMI Method:Stated General Appearance: No Apparent Distress, WD/WN Eyes: Bilateral Eye Normal Inspection, Bilateral Eye PERRL, Bilateral Eye EOMI HEENT: PERRL/EOMI Neck: Normal Inspection Respiratory: Lungs Clear, Normal Breath Sounds, No Accessory Muscle Use, No Respiratory Distress Cardiovascular: No Murmur, Normal Peripheral Pulses, Bradycardia (30's) Gastrointestinal: Non Tender, Soft Extremity: Normal Capillary Refill, Pedal Edema (2+ biulaterally at the ankles) Neurologic/Psychiatric: Alert, Oriented x3, No Motor/Sensory Deficits, Normal Mood/Affect Skin: Normal Color, Warm/Dry Progress/Results/Core Measures Suspected Sepsis SIRS Temperature: Pulse: Respiratory Rate: Laboratory Tests 04/09/22 14:40: White Blood Count 6.7 Blood Pressure / Mean: Laboratory Tests 04/09/22 14:40: Creatinine 1.21, INR Comment 0.9, Platelet Count 174, Total Bilirubin 1.4H Results/Orders Lab Results Laboratory Tests Test 04/09/22 14:40 Range/Units White Blood Count 6.7 4.3-11.0 10^3/uL Red Blood Count 4.52 4.30-5.52 10^6/uL Hemoglobin 14.5 13.3-17.7 g/dL Hematocrit 43 40-54 % Mean Corpuscular Volume 95 80-99 fL Mean Corpuscular Hemoglobin 32 25-34 pg Mean Corpuscular Hemoglobin Concent 34 32-36 g/dL Red Cell Distribution Width 15.8 H 10.0-14.5 % Platelet Count 174 130-400 10^3/uL Mean Platelet Volume 10.9 9.0-12.2 fL Immature Granulocyte % (Auto) 0 % Neutrophils (%) (Auto) 48 42-75 % Lymphocytes (%) (Auto) 41 12-44 % Monocytes (%) (Auto) 9 0-12 % Eosinophils (%) (Auto) 2 0-10 % Basophils (%) (Auto) 1 0-10 % Neutrophils # (Auto) 3.2 1.8-7.8 X 10^3 Lymphocytes # (Auto) 2.8 1.0-4.0 X 10^3 Monocytes # (Auto) 0.6 0.0-1.0 X 10^3 Eosinophils # (Auto) 0.1 0.0-0.3 10^3/uL Basophils # (Auto) 0.1 0.0-0.1 10^3/uL Immature Granulocyte # (Auto) 0.0 0.0-0.1 10^3/uL Prothrombin Time 12.9 12.2-14.7 SEC INR Comment 0.9 0.8-1.4 Activated Partial Thromboplast Time 32 24-35 SEC Sodium Level 138 135-145 MMOL/L Potassium Level 4.0 3.6-5.0 MMOL/L Chloride Level 100 98-107 MMOL/L Carbon Dioxide Level 22 21-32 MMOL/L Anion Gap 16 H 5-14 MMOL/L Blood Urea Nitrogen 14 7-18 MG/DL Creatinine 1.21 0.60-1.30 MG/DL Estimat Glomerular Filtration Rate 61 BUN/Creatinine Ratio 12 Glucose Level 93 70-105 MG/DL Calcium Level 9.8 8.5-10.1 MG/DL Corrected Calcium 9.6 8.5-10.1 MG/DL Magnesium Level 1.5 L 1.6-2.4 MG/DL Total Bilirubin 1.4 H 0.1-1.0 MG/DL Aspartate Amino Transf (AST/SGOT) 73 H 5-34 U/L Alanine Aminotransferase (ALT/SGPT) 57 H 0-55 U/L Alkaline Phosphatase 83 40-136 U/L Myoglobin 49.3 10.0-92.0 NG/ML Troponin I < 0.028 <0.028 NG/ML Total Protein 7.4 6.4-8.2 GM/DL Albumin 4.3 3.2-4.5 GM/DL My Orders Orders - MINNIE HAIR MD Ekg Tracing (04/09/22 14:37) Cbc With Automated Diff (04/09/22 14:48) Magnesium (04/09/22 14:48) Chest 1 View, Ap/Pa Only (04/09/22 14:48) Comprehensive Metabolic Panel (04/09/22 14:48) Myoglobin Serum (04/09/22 14:48) Protime With Inr (04/09/22 14:48) Partial Thromboplastin Time (04/09/22 14:48) O2 (04/09/22 14:48) Monitor-Rhythm Ecg Trace Only (04/09/22 14:48) Lipid Panel (04/10/22 06:00) Ed Iv/Invasive Line Start (04/09/22 14:48) Bnp [place] (04/09/22 14:48) Troponin I Brandan (04/09/22 14:48) Vital Signs/I&O 04/09/22 14:38 Temp 36.2 Pulse 34 Resp 17 B/P (MAP) 159/75 (103) Pulse Ox 96 O2 Delivery Room Air Capillary Refill : ECG Initial ECG Impression Date: Apr 09, 2022 Initial ECG Impression Time: 14:44 Initial ECG Rate: 34 Initial ECG Rhythm: S.Froilan Comment Scooped ST segments, depression noted in V3 1 mm, V4 and V5 2 mm, V6 1 mm. Diagnostic Imaging Diagonstic Imaging: Xray Plain Films/CT/US/NM/MRI: chest Comments NAME: GUSTAVO ARGUELLES [facility] REC#: [id number] PT STATUS: REG ER : 1940 PHYSICIAN: MINNIE HAIR MD ADMIT DATE: 04/09/22/ER Draft Date of Exam:04/09/22 CHEST 1 VIEW, AP/PA ONLY CLINICAL INDICATION: Patient with chest pain and bradycardia. EXAM: Portable chest x-ray upright view. COMPARISON: Chest x-ray dated 03/16/2015. FINDINGS: Lungs/pleura: There is minimal right basilar atelectasis. There is no definite lung infiltrate. Lungs are clear. There is no pneumothorax. There is no pleural effusion. Mediastinum: Unremarkable. Pulmonary vasculature: Unremarkable. Heart: Cardiac silhouette is upper limits of normal. Bones/extrathoracic soft tissue: There are degenerative spurs involving the thoracic spine. IMPRESSION: There is mild right basilar atelectasis or scarring. There is no radiographic evidence of acute cardiopulmonary process. Dictated on workstation # [id number] Dict: 04/09/22 1524 Trans: 04/09/22 1527 [facility] [id number] Interpreted by: MELINDA LEDEZMA MD Electronically signed by: Departure Communication (Admissions) Time/Spoke to Admitting Phy: 15:39 discussed with jaquelin Time/Spoke to Consulting Phy: 15:[address] Blanc Impression Primary Impression: Third degree heart block Disposition: ADMITTED INPATIENT Condition: Stable Admissions Decision to Admit Reason: Admit from ER (General) Decision to Admit/Date: Apr 09, 2022 Time/Decision to Admit Time: 15:41 Departure-Patient Inst. Referrals: AISSATOU BOGGS DO (PCP/Family) Primary Care Physician MINNIE HAIR MD Apr 09, 2022 14:52
[2022-04-09 15:14] LABS: BASOPHILS # (AUTO) 0.1 10^3/uL (0.0-0.1); BASOPHILS % (AUTO) 1 % (0-10); EOSINOPHILS # (AUTO) 0.1 10^3/uL (0.0-0.3); EOSINOPHILS % (AUTO) 2 % (0-10); HEMATOCRIT 43 % (40-54); HEMOGLOBIN 14.5 g/dL (13.3-17.7); LYMPHOCYTES # (AUTO) 2.8 X 10^3 (1.0-4.0); LYMPHOCYTES % (AUTO) 41 % (12-44); MEAN CORPUSCULAR HEMOGLOBIN 32 pg (25-34); MEAN CORPUSCULAR HGB CONC 34 g/dL (32-36); MEAN CORPUSCULAR VOLUME 95 fL (80-99); MEAN PLATELET VOLUME 10.9 fL (9.0-12.2); MONOCYTES # (AUTO) 0.6 X 10^3 (0.0-1.0); MONOCYTES % (AUTO) 9 % (0-12); NEUTROPHILS # (AUTO) 3.2 X 10^3 (1.8-7.8); NEUTROPHILS % (AUTO) 48 % (42-75); PLATELET COUNT 174 10^3/uL (130-400); WHITE BLOOD COUNT 6.7 10^3/uL (4.3-11.0)
[2022-04-09 15:18] LABS: ALBUMIN 4.3 GM/DL (3.2-4.5)
[2022-04-09 15:19] LABS: CALCIUM 9.8 MG/DL (8.5-10.1)
[2022-04-09 15:21] LABS: TOTAL PROTEIN 7.4 GM/DL (6.4-8.2)
[2022-04-09 15:22] LABS: BILIRUBIN,TOTAL 1.4 MG/DL (0.1-1.0)
[2022-04-09 15:24] LABS: CREATININE SERUM 1.21 MG/DL (0.60-1.30)
[2022-04-09 15:27] LABS: INR 0.9 (0.8-1.4); MAGNESIUM 1.5 MG/DL (1.6-2.4); PROTHROMBIN TIME PATIENT 12.9 SEC (12.2-14.7)
--- NOTE | 2022-04-09 15:27 | Diagnostic Imaging Report ---
CLINICAL INDICATION: Patient with chest pain and bradycardia. EXAM: Portable chest x-ray upright view. COMPARISON: Chest x-ray dated 03/16/2015. FINDINGS: Lungs/pleura: There is minimal right basilar atelectasis. There is no definite lung infiltrate. Lungs are clear. There is no pneumothorax. There is no pleural effusion. Mediastinum: Unremarkable. Pulmonary vasculature: Unremarkable. Heart: Cardiac silhouette is upper limits of normal. Bones/extrathoracic soft tissue: There are degenerative spurs involving the thoracic spine. IMPRESSION: There is mild right basilar atelectasis or scarring. There is no radiographic evidence of acute cardiopulmonary process. Dictated by: Dictated on workstation # [id number]
[2022-04-09] MEDS ORDERED: MAGNESIUM 1 GM/100 ML IVPB 100 ML IV SCH (18:45)
[2022-04-09] MEDS ORDERED: polyethylene glycoL POWDER 17 GM (MIRALAX) PACK PO PRN (20:45)
[2022-04-09] MEDS ORDERED: ACETAMINOPHEN 325 MG TABLET PO PRN (20:45)
[2022-04-09] MEDS ORDERED: ONDANSETRON 4 MG/2 ML (SDV) Z0FRAN IV PRN (20:45)
[2022-04-09] MEDS ORDERED: MELATONIN 3 MG TABLET PO PRN (20:45)
[2022-04-09] MEDS ORDERED: ANTACID SUSP 30 ML UDC (MYLANTA) PO PRN (20:45)
[2022-04-09] MEDS ORDERED: ONDANSETRON 4 MG (ZOFRAN) ORAL DISSOLVE TAB PO PRN (20:45)
--- NOTE | 2022-04-09 21:23 | Tele-ICU Progress Note ---
Subjective Date Seen by a Provider: Apr 09, 2022 Time Seen by a Provider: 21:18 Subjective/Events-last exam see a/p Review of Systems General: No Chills, No Night Sweats, No Fatigue, No Malaise, No Appetite, No Other Sepsis Event Evaluation Height, Weight, BMI Height: 5'4.00" Weight: 162lbs. 2.0oz. 73.674910ax; 26.00 BMI Method:Stated Exam Exam Patient acknowledged, consented, and participated in this virtual visit which was conducted using real time audio/video Vital Signs Date Time Temp Pulse Resp B/P (MAP) Pulse Ox O2 Delivery O2 Flow Rate FiO2 04/09/22 21:02 92 Room Air 04/09/22 20:28 31 04/09/22 14:38 36.2 34 17 159/75 (103) 96 Room Air Height & Weight Height: 5'4.00" Weight: 162lbs. 2.0oz. 73.487757qi; 26.00 BMI Method:Stated General Appearance: No Apparent Distress, WD/WN HEENT: PERRL/EOMI Neck: Normal Inspection Respiratory: Lungs Clear, Normal Breath Sounds, No Accessory Muscle Use, No Respiratory Distress Cardiovascular: No Murmur, Normal Peripheral Pulses, Bradycardia (30's) Extremity: Normal Capillary Refill, Pedal Edema (2+ biulaterally at the ankles) Neurologic/Psychiatric: Alert, Oriented x3, No Motor/Sensory Deficits, Normal Mood/Affect Skin: Normal Color, Warm/Dry Results Lab Laboratory Tests 04/09/22 14:40 Assessment/Plan Assessment/Plan new admission cc bradycardia hpi 81 yo male sent from pcp with bradycardia and possible av block. patient complianing of recent swelling and medication change from norvasc 10 to 5. no oher symptoms. no sob. no cp reported. hr in 30s in ed. patient is also on synthroid. no n/v/d. pmhx hypothryroid, htn, dyslipemia, gerd, dvt pshx nc allergy apixaban fam hx nc ros see above for pertinent positives, all others negative vitals hr 30s, bp 160s, rr 17, afebrile video assessement done. patient is in street clothes, and appears comfortable. exam deffered as EICU is remotely monitoring from a different state. defer exam to bedside physicians and staff. er exam reviewed. per er exam no murmer on heart exam. bradycardia. labs see emar Sodium Level 138 135-145 MMOL/L Potassium Level 4.0 3.6-5.0 MMOL/L Chloride Level 100 98-107 MMOL/L Carbon Dioxide Level 22 21-32 MMOL/L Anion Gap 16 H 5-14 MMOL/L Blood Urea Nitrogen 14 7-18 MG/DL Creatinine 1.21 0.60-1.30 MG/DL Estimat Glomerular Filtration Rate 61 BUN/Creatinine Ratio 12 Glucose Level 93 70-105 MG/DL Calcium Level 9.8 8.5-10.1 MG/DL EKG sinus catrachita cxr nap i/p new admission cc bradycardia hpi 81 yo male sent from pcp with bradycardia and possible av block. patient complianing of recent swelling and medication change from norvasc 10 to 5. no oher symptoms. no sob. no cp reported. hr in 30s in ed. patient is also on synthroid. no n/v/d. pmhx hypothryroid, htn, dyslipemia, gerd, dvt pshx nc allergy apixaban fam hx nc ros see above for pertinent positives, all others negative vitals hr 30s, bp 160s, rr 17, afebrile video assessement done. patient is in street clothes, and appears comfortable. exam deffered as EICU is remotely monitoring from a different state. defer exam to bedside physicians and staff. er exam reviewed. per er exam no murmer on heart exam. bradycardia. labs see emar Sodium Level 138 135-145 MMOL/L Potassium Level 4.0 3.6-5.0 MMOL/L Chloride Level 100 98-107 MMOL/L Carbon Dioxide Level 22 21-32 MMOL/L Anion Gap 16 H 5-14 MMOL/L Blood Urea Nitrogen 14 7-18 MG/DL Creatinine 1.21 0.60-1.30 MG/DL Estimat Glomerular Filtration Rate 61 BUN/Creatinine Ratio 12 Glucose Level 93 70-105 MG/DL Calcium Level 9.8 8.5-10.1 MG/DL EKG sinus catrachita cxr nap i/p new admission cc bradycardia hpi 81 yo male sent from pcp with bradycardia and possible av block. patient complianing of recent swelling and medication change from norvasc 10 to 5. no oher symptoms. no sob. no cp reported. hr in 30s in ed. patient is also on synthroid. no n/v/d. pmhx hypothryroid, htn, dyslipemia, gerd, dvt pshx nc allergy apixaban fam hx nc ros see above for pertinent positives, all others negative vitals hr 30s, bp 160s, rr 17, afebrile video assessement done. patient is in street clothes, and appears comfortable. exam deffered as EICU is remotely monitoring from a different state. defer exam to bedside physicians and staff. er exam reviewed. per er exam no murmer on heart exam. bradycardia. labs see emar Sodium Level 138 135-145 MMOL/L Potassium Level 4.0 3.6-5.0 MMOL/L Chloride Level 100 98-107 MMOL/L Carbon Dioxide Level 22 21-32 MMOL/L Anion Gap 16 H 5-14 MMOL/L Blood Urea Nitrogen 14 7-18 MG/DL Creatinine 1.21 0.60-1.30 MG/DL Estimat Glomerular Filtration Rate 61 BUN/Creatinine Ratio 12 Glucose Level 93 70-105 MG/DL Calcium Level 9.8 8.5-10.1 MG/DL EKG sinus catrachita cxr nap i/p 1. sinus bradycardia patient is asymptomatic per bedside discussions with nurse admit to icu cardiac monitoring cards to consult - bedside nurse to contact add mag may need pacer DA ordered, but nurse to discuss with cards repeat am labs repeat ekg echo repeat troponin see orders cards to consult - bedside nurse to contact repeat am labs repeat ekg echo repeat troponin see orders 2. htn by history Critical Care: Critically Ill Patient Diagnosis/Problems Diagnosis/Problems (1) Hypertension Status: Chronic TWILA RODRIGUEZ DO Apr 09, 2022 21:23
[2022-04-09] MEDS: NS IV 1000 ML 1,000 ML IV SCH (21:37)
[2022-04-09] MEDS: DOPamine DRIP 250 ML IV SCH (21:58)
[2022-04-10 05:13] LABS: BASOPHILS % (AUTO) 0 % (0-10); EOSINOPHILS % (AUTO) 1 % (0-10); HEMATOCRIT 43 % (40-54); HEMOGLOBIN 14.9 g/dL (13.3-17.7); LYMPHOCYTES # (AUTO) 1.4 10^3/uL (1.0-4.0); LYMPHOCYTES % (AUTO) 18 % (12-44); MEAN CORPUSCULAR HEMOGLOBIN 32 pg (25-34); MEAN CORPUSCULAR HGB CONC 34 g/dL (32-36); MEAN CORPUSCULAR VOLUME 93 fL (80-99); MEAN PLATELET VOLUME 10.7 fL (9.0-12.2); MONOCYTES # (AUTO) 0.6 10^3/uL (0.0-1.0); MONOCYTES % (AUTO) 8 % (0-12); NEUTROPHILS # (AUTO) 5.7 10^3/uL (1.8-7.8); NEUTROPHILS % (AUTO) 73 % (42-75); PLATELET COUNT 160 10^3/uL (130-400); WHITE BLOOD COUNT 7.9 10^3/uL (4.3-11.0)
[2022-04-10 05:24] LABS: POTASSIUM 4.3 MMOL/L (3.6-5.0)
[2022-04-10 05:25] LABS: ALBUMIN 4.1 GM/DL (3.2-4.5)
[2022-04-10 05:26] LABS: CALCIUM 9.4 MG/DL (8.5-10.1)
[2022-04-10 05:27] LABS: TOTAL PROTEIN 7.1 GM/DL (6.4-8.2)
[2022-04-10 05:29] LABS: BILIRUBIN,TOTAL 2.5 MG/DL (0.1-1.0)
[2022-04-10 05:30] LABS: PHOSPHORUS 3.5 MG/DL (2.3-4.7)
[2022-04-10 05:31] LABS: CREATININE SERUM 1.08 MG/DL (0.60-1.30)
[2022-04-10] MEDS: POTASSIUM CL 10MEQ/50ML IVPB 50 ML IV SCH (05:32)
[2022-04-10] MEDS: KCL 20 MEQ TAB (K-DUR) PO SCH (05:32)
[2022-04-10 05:34] LABS: MAGNESIUM 1.4 MG/DL (1.6-2.4)
[2022-04-10] MEDS: MAGNESIUM 1 GM/100 ML IVPB 100 ML IV SCH (05:48)
[2022-04-10] MEDS ORDERED: MAGNESIUM 1 GM/100 ML IVPB 100 ML IV SCH (06:00)
[2022-04-10] MEDS: LEVOTHYROXINE 50 MCG (LEVOTHROID) TAB PO SCH (06:59)
[2022-04-10 07:01] VITALS: BP 139/64
[2022-04-10] MEDS: DOPamine DRIP 250 ML IV SCH (07:01)
[2022-04-10] MEDS: PANTOPRAZOLE 40 MG (PROTONIX) TAB PO SCH (09:19)
[2022-04-10] MEDS: ENOXAPARIN 40 MG/0.4 ML (LOVENOX) SYR SC SCH (09:19)
--- NOTE | 2022-04-10 09:32 | Consultation-Cardiology ---
HPI-Cardiology Cardiology Consultation Date of Consultation 04/10/22 Date of Admission Time Seen by Provider: 09:28 Indication: Complete heart block HPI 81 years old gentleman with history of hypertension, has been having increasing pedal edema, worsening over the past week. He has stopped amlodipine hoping that the edema will improve. On his next visit to Dr. Urias's office he was noted to be severely bradycardic. Patient was instructed to stop metoprolol and he was sent to the emergency room. He did not take any metoprolol for the past 48 hours. He still bradycardic in complete heart block with a heart rate in the 30s. Has been complaining of fatigue and loss of energy. No chest pain. No palpitation or syncope Home Medications & Allergies Allergies: Coded Allergies: apixaban (Unverified Allergy, Intermediate, RASH, 09/01/17) Home Medication List Reviewed: Yes NJA-[id number]-Naqilb Hx Patient Social History Marital Status: Employed/Student: retired Recent Hopitalizations: No Have you traveled recently?: No Alcohol Use?: Yes Immunizations Up To Date Date of Pneumonia Vaccine: Jul 26, 2017 Date of Influenza Vaccine: Jul 26, 2017 Past Medical History Discussed below Family Medical History Significant Family History: Heart Disease, Hypertension, Stroke, Vascular Disease Family History: Abdominal aortic aneurysm G8 BROTHER (BRAIN ANEURSYM) Cardiovascular disease 19 FATHER 19 MOTHER Completed stroke 19 MOTHER Drug abuse G8 BROTHER Hypertension 19 FATHER 19 MOTHER G8 BROTHER Myocardial infarction 19 FATHER No Family History of: AIDS Independence's disease Alcoholism Alzheimer's disease Arthritis Asthma Cataracts Colon cancer Dementia Diabetes mellitus Dysphasia Glaucoma Kidney disease Parkinson's disease Prostate cancer Psychosocial problem Respiratory disorder Seizure disorder Severe allergy Thyroid disease Tuberculosis Review of Systems-General Review of Systems Constitutional: see HPI, malaise, weakness EENTM: no symptoms reported Respiratory: see HPI; No cough, No dyspnea on exertion, No hemoptysis, No orthopnea, No phlegm; short of breath (minimal); No stridor, No wheezing, No other Cardiovascular: see HPI; No chest pain; edema; No Hx of Intervention, No p alpitations, No syncope, No vascular heart diseas, No other Gastrointestinal: no symptoms reported, see HPI Genitourinary: other (prostate issues) Musculoskeletal: see HPI, other (leg swelling) Skin: no symptoms reported, see HPI Psychiatric/Neurological: No Symptoms Reported, See HPI All Other Systems Reviewed Negative Unless Noted: Yes Reviewed Test Results Reviewed Test Results Lab Laboratory Tests Test 04/09/22 14:40 04/10/22 05:04 Range/Units White Blood Count 6.7 7.9 4.3-11.0 10^3/uL Red Blood Count 4.52 4.67 4.30-5.52 10^6/uL Hemoglobin 14.5 14.9 13.3-17.7 g/dL Hematocrit 43 43 40-54 % Mean Corpuscular Volume 95 93 80-99 fL Mean Corpuscular Hemoglobin 32 32 25-34 pg Mean Corpuscular Hemoglobin Concent 34 34 32-36 g/dL Red Cell Distribution Width 15.8 H 15.0 H 10.0-14.5 % Platelet Count 174 160 130-400 10^3/uL Mean Platelet Volume 10.9 10.7 9.0-12.2 fL Immature Granulocyte % (Auto) 0 0 % Neutrophils (%) (Auto) 48 73 42-75 % Lymphocytes (%) (Auto) 41 18 12-44 % Monocytes (%) (Auto) 9 8 0-12 % Eosinophils (%) (Auto) 2 1 0-10 % Basophils (%) (Auto) 1 0 0-10 % Neutrophils # (Auto) 3.2 5.7 1.8-7.8 10^3/uL Lymphocytes # (Auto) 2.8 1.4 1.0-4.0 10^3/uL Monocytes # (Auto) 0.6 0.6 0.0-1.0 10^3/uL Eosinophils # (Auto) 0.1 0.0 0.0-0.3 10^3/uL Basophils # (Auto) 0.1 0.0 0.0-0.1 10^3/uL Immature Granulocyte # (Auto) 0.0 0.0 0.0-0.1 10^3/uL Prothrombin Time 12.9 12.2-14.7 SEC INR Comment 0.9 0.8-1.4 Activated Partial Thromboplast Time 32 24-35 SEC Sodium Level 138 138 135-145 MMOL/L Potassium Level 4.0 4.3 3.6-5.0 MMOL/L Chloride Level 100 100 98-107 MMOL/L Carbon Dioxide Level 22 21 21-32 MMOL/L Anion Gap 16 H 17 H 5-14 MMOL/L Blood Urea Nitrogen 14 16 7-18 MG/DL Creatinine 1.21 1.08 0.60-1.30 MG/DL Estimat Glomerular Filtration Rate 61 69 BUN/Creatinine Ratio 12 15 Glucose Level 93 112 H 70-105 MG/DL Calcium Level 9.8 9.4 8.5-10.1 MG/DL Corrected Calcium 9.6 9.3 8.5-10.1 MG/DL Magnesium Level 1.5 L 1.4 L 1.6-2.4 MG/DL Total Bilirubin 1.4 H 2.5 H 0.1-1.0 MG/DL Aspartate Amino Transf (AST/SGOT) 73 H 37 H 5-34 U/L Alanine Aminotransferase (ALT/SGPT) 57 H 48 0-55 U/L Alkaline Phosphatase 83 75 40-136 U/L Myoglobin 49.3 10.0-92.0 NG/ML Troponin I < 0.028 <0.028 NG/ML B-Type Natriuretic Peptide 1213.0 H <100.0 PG/ML Total Protein 7.4 7.1 6.4-8.2 GM/DL Albumin 4.3 4.1 3.2-4.5 GM/DL Thyroid Stimulating Hormone (TSH) 3.01 0.35-4.94 UIU/ML Phosphorus Level 3.5 2.3-4.7 MG/DL Triglycerides Level 60 <150 MG/DL Cholesterol Level 167 < 200 MG/DL LDL Cholesterol Direct 62 1-129 MG/DL VLDL Cholesterol 12 5-40 MG/DL HDL Cholesterol 83 H 40-60 MG/DL Physical Exam Physical Exam Vital Signs Vital Signs - First Documented 04/09/22 04/09/22 14:38 23:00 Temp 36.2 Pulse 34 Resp 17 B/P (MAP) 159/75 (103) Pulse Ox 96 O2 Delivery Room Air O2 Flow Rate 2.00 Capillary Refill : Height, Weight, BMI Height: 5'4.00" Weight: 162lbs. 2.0oz. 73.361988cp; 27.00 BMI Method:Stated General Appearance: No Apparent Distress, WD/WN Eyes: Bilateral Eye Normal Inspection, Bilateral Eye PERRL, Bilateral Eye EOMI HEENT: PERRL/EOMI Neck: Normal Inspection Respiratory: Lungs Clear, Normal Breath Sounds, No Accessory Muscle Use, No Respiratory Distress Cardiovascular: No Murmur, Normal Peripheral Pulses, Bradycardia (30's), Systolic Murmur Gastrointestinal: Non Tender, Soft Extremity: Normal Capillary Refill, Pedal Edema (2+ biulaterally at the ankles) Neurologic/Psychiatric: Alert, Oriented x3, No Motor/Sensory Deficits, Normal Mood/Affect Skin: Normal Color, Warm/Dry A/P-Cardiology Admission Diagnosis Bradycardia Complete heart block Hypertension Alcoholism Assessment/Plan Severe bradycardia with a heart rate in the 30s. 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 Patient has been of calcium channel blockers for a week and off beta-blockers for over 48 hours I will proceed with dual-chamber pacemaker implantation Hypertension, currently blood pressure is stable. Continue to hold medication and will restart beta-blockers after implant Hypothyroidism maintained on levothyroxine, TSH level is normal. Alcoholism, educated on avoiding alcohol products Tobaccoism, patient chews tobacco. History of partial colectomy, 2 hernia surgeries in the remote past. LORAINE RAGLAND MD Apr 10, 2022 09:32
--- NOTE | 2022-04-10 09:33 | Conscious Sedation/ASA ---
Conscious Sedation Pre-Proced Time 09:33 ASA Score 3 For ASA 3 and 4: Consider anesthesia and medical clearance. Also, for patients with a history of failed moderate sedation consider anesthesia. Airway Lungs Heart ASA score ASA 1: a normal healthy patient ASA 2: a patient with a mild systemic disease (mid diabetes, controlled hypertension, obesity x ASA 3: a patient with a severe systemic disease that limits activity (angina, COPD, prior Myocardial infarction) ASA 4: a patient with an incapacitating disease that is a constant threat to life (CHF, renal failure) ASA 5: a moribund patient not expected to survive 24 hrs. (ruptured aneurysm) ASA 6: a declared brain- patient whose organs are being harvested. For emergent operations, add the letter E after the classification Mallampati Classification Grade 3 Sedation Plan Analgesia, Amnesia, Plan communicated to team members, Discussed options with patient/fam, Discussed risks with patient/fam The patient is an appropriate candidate to undergo the planned procedure, sedation, and anesthesia. The patient immediately re-assessed prior to indication. LORAINE RAGLAND MD Apr 10, 2022 09:33
[2022-04-10] MEDS ORDERED: ceFAZolin INJECTION 1,000 MG ONE (15:40)
[2022-04-10] MEDS ORDERED: MIDAZOLAM 5 MG/5 ML (VERSED) VIAL ONE (15:40)
[2022-04-10] MEDS ORDERED: fentaNYL INJ 100 MCG/2 ML AMP ONE (15:42)
[2022-04-10] MEDS ORDERED: LIDOCAINE 1% INJ 20 ML VIAL ONE (15:50)
[2022-04-10] MEDS ORDERED: HEParin (CATH LAB) 1,000 ML IV ONE (15:50)
[2022-04-10] MEDS ORDERED: NS IV 1000 ML 2,000 ML ONE (15:50)
--- NOTE | 2022-04-10 18:14 | Permanent Pacemaker Implant ---
Dual Chamber Pacemaker Implant PROCEDURE PHYSICIAN: Jah Blanc DUAL CHAMBER PACEMAKER IMPLANTATION: DATE OF PROCEDURE: 04/10/22 REFERRING PHYSICIAN: Dr. Júnior Rodriguez ATTENDING PHYSICIAN: Dr. Júnior Rodriguez INDICATION: Complete heart block PREOPERATIVE DIAGNOSIS: Symptomatic bradycardia with complete heart block POSTOPERATIVE DIAGNOSIS: Complete heart block, sinus node dysfunction HISTORY: 81 years old gentleman admitted with severe bradycardia, heart rate in the 40s and complete heart block intermittently. He has been symptomatic with fatigue and peripheral edema. Dual-chamber permanent pacemaker was recommended. PROCEDURE PERFORMED: 1. Dual-chamber permanent pacemaker implantation. 2. Fluoroscopy. 3. Central venous access. ANESTHESIA: Local anesthesia, conscious sedation. COMPLICATIONS: None. ESTIMATED BLOOD LOSS:20 mL. SPECIMENS: None. ORAL ANTICOAGULATION: None. FLUOROSCOPY TIME: FLUOROSCOPY DOSE: CONTRAST DOSE: PROCEDURE DETAILS: The patient is a 81 male and after all of the patients questions were answered, the patient was brought to the EP Lab. The patient's left chest was prepped and draped in sterile fashion. A 2 inch horizontal incision was made 1 cm below the clavicle and dissection carried down to the pectoralis fascia. Using the modified Seldinger technique and under fluoroscopy guidance, the anterior aspect of the left axillary vein was accessed 2 times. The J wires were secured to the drapes with a mosquito clamp. A 7-Palauan sheath was introduced over one of the J-wires. The RV lead was then inserted. The RV lead was directed across the tricuspid valve to the apical septal portion of the right ventricle. The position was checked in MESERET and RAMSEY views. The screw was deployed and the lead connected to the numerical control programmer. Close sensing and pacing thresholds were obtained. Diaphragmatic pacing was ruled out. The lead was secured with 2-0 silk ties to the underlying muscle and fascia. Next, a 7-Palauan sheath was introduced through the remaining J-wire. An atrial lead was then introduced and guided to the level of the right appendage. The screw was deployed and the lead was connected to the interrogator. Good sensing and pacing thresholds were obtained. Diaphragmatic pacing was ruled out. The leads were secured with 2-0 silk ties to the underlying muscle and fascia. The leads were connected to the device in a hermetic fashion. The device and leads were placed in a Lemuel patch in the pocket. Aggressive irrigation with jael ine solution was done. The device was secured to the underlying muscle and fascia with a 2-0 silk tie. interrogation of the device revealed good integrity of all the leads and good connections. The wound was then closed using 2 layers. The first layer was interrupted 2-0 absorbable Vicryl suture. The last layer was a single subcuticular layer with 4- 0 Vicryl suture. Half inch Steri-Strips and a small dressing were then applied to the wound. The patient tolerated the procedure well and was returned to the recovery room in stable condition with stable vital signs. DEVICE INFORMATION: HARMEET XT DR MRI [id number] RA LEAD: [id number] RV LEAD: [id number] PER-OPERATIVE DEVICE INTERROGATION: Good sensing and capture activity IMMEDIATE POSTOPERATIVE DEVICE INTERROGATION: Right atrium, atrial threshold 0.4 ms at 0.6 V, impedance 551, P wave 3 mV Right ventricle, threshold 0.4 ms at 0.3 V, impedance 703, R wave 6 mV PLAN: The patient transferred to the ICU. We will continue with two more doses of IV antibiotics. We will check a chest x-ray and interrogate the device in the morning. The patient will continue on oral antibiotics for 5 days. CONCLUSION: Successful implantation of dual-chamber pacemaker with no complication JAH BLANC MD Apr 10, 2022 18:14
[2022-04-10] MEDS ORDERED: NS IV 1000 ML 1,000 ML IV SCH (18:15)
[2022-04-10] MEDS ORDERED: PATIENT MAY USE OWN MEDS, ALL PO SCH (18:15)
--- NOTE | 2022-04-10 18:40 | History & Physical-Hospitalist ---
History of Present Illness HPI/Chief Complaint Simon Broussard is an 81 year old male with PMH HTN, HLD, GERD, tobacco abuse, alcohol abuse, who presented with low heart rate. He has been feeling tired for a few weeks. He went to his doctor and was found to have bradycardia and was sent to the ER. He was found to have complete heart block. He had been on Metoprolol which was held. His bradycardia has persisted. He denies chest pain and palpitaitons. He denies shortness of breath and cough. He denies abdominal pain. He denies nausea and vomiting. He has been in his normal state of health other than feeling tired. Source: patient Exam Limitations: no limitations Date Seen 04/10/22 Time Seen by a Provider: 10:10 Attending Physician Júnior Rodriguez DO PCP Admitting Physician: Jah Blanc MD Attending Physician: Jah Blanc MD Referring Physician Date of Admission Apr 09, 2022 at 19:37 Home Medications & Allergies Home Medications Reviewed patient Home Medication Reconciliation performed by pharmacy medication reconciliations county program technician and/or nursing. Patients Allergies have been reviewed. Allergies Allergies Coded Allergies apixaban (Unverified Allergy, Intermediate, RASH, 09/01/17) Past Eenwdfs-Rzazow-Evtyoe Hx Patient Social History Marrital Status: Employed/Student: retired Tobacco Use?: Yes Smokeless type used: Chew Smokeless Tobacco Frequency: Current Someday User Use of E-Cig and/or Vaping dev: No Substance use?: No Alcohol Use?: Yes Alcohol type: Hard Liquor Alcohol Frequency: Couple times a week Pt feels they are or have been: No Immunizations Up To Date Date of Influenza Vaccine: Jul 26, 2017 First/Initial COVID19 Vaccinat: yes Second COVID19 Vaccination Lamont: yes Date of Pneumonia Vaccine: Jul 26, 2017 Seasonal Allergies Seasonal Allergies: Yes (MILD) Current Status Advance Directives: No Communicates: Verbally Primary Language: British Preferred Spoken Language: British Is interpretation needed?: No Sensory deficits: Vision impairment Implanted or Applied Medical D: None Past Medical History Deep Vein Thrombosis, High Cholesterol, Hypertension Sexually Transmitted Disease: No HIV/AIDS: No Kidney Stones Diverticulosis, Polyps Chronic Back Pain Loss of Vision: Denies Hearing Impairment: Denies Adverse Reaction/Blood Tranf: No (N/A) Family Medical History Abdominal aortic aneurysm G8 BROTHER (BRAIN ANEURSYM) Cardiovascular disease 19 FATHER 19 MOTHER Completed stroke 19 MOTHER Drug abuse G8 BROTHER Hypertension 19 FATHER 19 MOTHER G8 BROTHER Myocardial infarction 19 FATHER No Family History of: AIDS [place]'s disease Alcoholism Alzheimer's disease Arthritis Asthma Cataracts Colon cancer Dementia Diabetes mellitus Dysphasia Glaucoma Kidney disease Parkinson's disease Prostate cancer Psychosocial problem Respiratory disorder Seizure disorder Severe allergy Thyroid disease Tuberculosis Heart Disease, Hypertension, Stroke, Vascular Disease Review of Systems Constitutional: weakness Respiratory: no symptoms reported Cardiovascular: no symptoms reported Gastrointestinal: no symptoms reported Physical Exam Physical Exam Vital Signs Vital Signs - First Documented 04/09/22 04/09/22 14:38 23:00 Temp 36.2 Pulse 34 Resp 17 B/P (MAP) 159/75 (103) Pulse Ox 96 O2 Delivery Room Air O2 Flow Rate 2.00 Capillary Refill : Height, Weight, BMI Height: 5'4.00" Weight: 162lbs. 2.0oz. [id number]; 27.00 BMI Method:Stated General Appearance: No Apparent Distress, WD/WN HEENT: PERRL/EOMI, Pharynx Normal Neck: Normal Inspection, Supple Respiratory: Lungs Clear, Normal Breath Sounds, No Respiratory Distress Cardiovascular: No Murmur, Bradycardia Gastrointestinal: Normal Bowel Sounds, Non Tender, Soft Extremity: Normal Inspection, No Pedal Edema Neurologic/Psychiatric: Alert, Normal Mood/Affect Skin: Normal Color, Warm/Dry Results Results/Procedures Labs Laboratory Tests 04/09/22 14:40 04/10/22 05:04 Patient resulted labs reviewed. Imaging: Reviewed Imaging Report Assessment/Plan Admission Diagnosis Complete heart block Admission Status: Inpatient Order (span 2 midnights) Reason for Inpatient Admission: Pacemaker Assessment and Plan Complete heart block HTN Holding Metoprolol HR remains low Cardiology consulted Planning for pacemaker placement Hypothyroidism GERD Continue home meds DVT prophylaxis: Lovenox Critical Care Critically Ill Patient Diagnosis/Problems Diagnosis/Problems (1) Third degree heart block Status: Acute SUSAN LIVINGSTON MD Apr 10, 2022 18:40
--- NOTE | 2022-04-10 19:06 | Diagnostic Imaging Report ---
INDICATION: Post pacemaker placement. EXAMINATION: Frontal chest was obtained at 6:26 p.m. COMPARISON: 04/09/2022. FINDINGS: There is cardiomegaly. There is a new dual-lead pacemaker in place with right atrial and ventricular leads. There is no pneumothorax following device placement. There is mild bibasilar atelectasis. There is no significant pleural fluid. IMPRESSION: Cardiomegaly and mild bibasilar atelectasis. New pacemaker in place. No pneumothorax or pleural fluid following device placement. Dictated by: Dictated on workstation # [id number]
[2022-04-10] MEDS: ceFAZolin INJECTION 1,000 MG in NS (IVPB) 50 ML IV SCH (21:15)
[2022-04-10] MEDS: NS IV 1000 ML 1,000 ML IV SCH (22:57)
[2022-04-11] MEDS: NS IV 1000 ML 1,000 ML IV SCH ×2 (04:59→12:45)
[2022-04-11] MEDS: ceFAZolin INJECTION 1,000 MG in NS (IVPB) 50 ML IV SCH ×2 (06:12→14:14)
[2022-04-11] MEDS: LEVOTHYROXINE 50 MCG (LEVOTHROID) TAB PO SCH (06:12)
[2022-04-11 06:33] LABS: BASOPHILS % (AUTO) 0 % (0-10); EOSINOPHILS # (AUTO) 0.1 10^3/uL (0.0-0.3); EOSINOPHILS % (AUTO) 1 % (0-10); HEMATOCRIT 41 % (40-54); LYMPHOCYTES # (AUTO) 1.6 10^3/uL (1.0-4.0); LYMPHOCYTES % (AUTO) 24 % (12-44); MEAN CORPUSCULAR HEMOGLOBIN 32 pg (25-34); MEAN CORPUSCULAR HGB CONC 32 g/dL (32-36); MEAN CORPUSCULAR VOLUME 100 fL (80-99); MEAN PLATELET VOLUME 10.5 fL (9.0-12.2); MONOCYTES # (AUTO) 0.6 10^3/uL (0.0-1.0); MONOCYTES % (AUTO) 8 % (0-12); NEUTROPHILS # (AUTO) 4.4 10^3/uL (1.8-7.8); NEUTROPHILS % (AUTO) 66 % (42-75); PLATELET COUNT 134 10^3/uL (130-400); WHITE BLOOD COUNT 6.7 10^3/uL (4.3-11.0)
[2022-04-11] MEDS ORDERED: FUROSEMIDE 40 MG/4 ML INJ (LASIX) IVP ONE (06:45)
[2022-04-11 06:49] LABS: ALBUMIN 3.6 GM/DL (3.2-4.5)
[2022-04-11 06:50] LABS: POTASSIUM 3.7 MMOL/L (3.6-5.0)
[2022-04-11 06:51] LABS: CALCIUM 8.6 MG/DL (8.5-10.1)
[2022-04-11 06:52] LABS: TOTAL PROTEIN 6.3 GM/DL (6.4-8.2)
[2022-04-11 06:54] LABS: BILIRUBIN,TOTAL 1.7 MG/DL (0.1-1.0)
[2022-04-11 06:56] LABS: CREATININE SERUM 0.92 MG/DL (0.60-1.30)
[2022-04-11] MEDS: POTASSIUM CL 10MEQ/50ML IVPB 50 ML IV SCH (06:58)
[2022-04-11] MEDS: KCL 20 MEQ TAB (K-DUR) PO SCH (06:58)
[2022-04-11 06:59] LABS: MAGNESIUM 1.3 MG/DL (1.6-2.4)
[2022-04-11] MEDS: MAGNESIUM 1 GM/100 ML IVPB 100 ML IV SCH ×5 (08:48→13:22)
[2022-04-11] MEDS: ENOXAPARIN 40 MG/0.4 ML (LOVENOX) SYR SC SCH (09:28)
[2022-04-11] MEDS: PANTOPRAZOLE 40 MG (PROTONIX) TAB PO SCH (09:28)
[2022-04-11] MEDS ORDERED: HYDR25TA4 PO (15:32)
[2022-04-11] MEDS ORDERED: MTP25TSR PO (15:32)
--- NOTE | 2022-04-11 15:33 | Discharge Inst-Post CATH ---
Discharge Inst-CATH/EP Problems Reviewed?: Yes Post Cardiac Cath/EP D/C Inst Follow Up/Plan Appointment with Dr. Blanc's office in 1 week <b>CARDIAC CATH/EP PROCEDURE DISCHARGE INSTRUCTIONS</b> ACTIVITY * Go Home directly and rest. * Limit activity of the leg (or wrist if it was used) for 7 days including aerobics, swimming, jogging, bicycling, etc. * Restrict stair-climbing for 7 days if possible, if not, climb up with your non-cath leg, then bring together on the same step. * Avoid lifting, pushing, pulling or excessive movement of the affected extremity for 7 days. * Customary sexual activity may be resumed after 2 days-use caution not to use a position that strains or causes pain to the affected extremity. * No driving for 24 hours. * NO SMOKING. * Avoid straining for bowel movements for 7 days. * Gentle walking on level ground is allowed. * Returning to work will depend on the type of procedure and the results. Your doctor will discuss this with you. CALL YOUR DOCTOR FOR ANY OF THE FOLLOWING: *If bleeding from the puncture site occurs- Apply gentle pressure to site with clean cloth and call your doctor or EMS. * If a knot or lump forms under the skin, increases in size, or causes pain. * If bruising appears to be worsening or moving further down your leg instead of disappearing. * Temperature above 101 F. CARE OF YOUR GROIN INCISION; * Bruising or purple discoloration of the skin near the puncture site is common. * You may shower only, no bathtub bathing for 5 days. Be careful to avoid slipping as your leg may feel stiff. * If a closure device was used on your femoral artery, please see the attached guide regarding care of the device and your leg. * Leave dressing on FOR 24 hours. CARE OF YOUR WRIST INCISION; * Bruising or purple discoloration of the skin near the puncture site is common. * You may shower. * DO NOT submerge wrist. * Leave dressing on FOR 24 hours. LORAINE BLANC MD Apr 11, 2022 15:32
[2022-04-11] MEDS ORDERED: MAGN200T8 PO (16:26)
--- NOTE | 2022-04-11 16:28 | Cardiology Progress Note ---
Subjective Date Seen by Provider: Apr 11, 2022 Time Seen by Provider: 16:26 Subjective/Events-last exam Patient was seen at bedside, sitting comfortably. No new complaint. Objective-Cardiology Exam Last Set of Vital Signs Vital Signs 04/10/22 04/11/22 11:38 08:00 Temp 36.7 Pulse Ox 95 O2 Delivery Nasal Cannula O2 Flow Rate 3.00 I&O Intake and Output 04/11/22 00:00 Intake Total 1500 ml Output Total 550 ml Balance 950 ml Intake Oral 200 ml IV Total 1300 ml Output Urine Total 550 ml # Voids 3 # Bowel Movements 2 General: Alert, Oriented X3, Cooperative HEENT: Atraumatic, PERRLA Neck: Supple, No JVD, No Thyromegaly Lungs: Clear to Auscultation, Normal Air Movement Heart: Regular Rate, Normal S1, Normal S2, No Murmurs Abdomen: Normal Bowel Sounds, Soft, No Tenderness, No Hepatosplenomegaly, No Masses Extremities: No Clubbing, No Cyanosis, No Edema, Normal Pulses, No Tenderness/Swelling Skin: No Rashes, No Breakdown, No Significant Lesion Neuro: Normal Gait, Normal Speech, Strength at 5/5 X4 Ext, Normal Tone, Sensation Intact Psych/Mental Status: Mental Status NL, Mood NL Results Lab Laboratory Tests 04/11/22 06:24 A/P-Cardiology Admission Diagnosis Bradycardia Complete heart block Hypertension Alcoholism Assessment/Plan Symptomatic bradycardia with sinus node dysfunction and complete heart block Status post dual-chamber pacemaker implanted on April 10, 2022 Currently patient is paced 100% ventricular, good sensing and capture activity. Okay for discharge Hypomagnesemia, I wrote for additional magnesium and will discharge him on home magnesium replacement. Follow-up with primary care physician to monitor electrolyte closely. Hypertension, currently blood pressure is stable. Continue to hold medication and will restart beta-blockers after implant Hypothyroidism maintained on levothyroxine, TSH level is normal. Alcoholism, educated on avoiding alcohol products Tobaccoism, patient chews tobacco. History of partial colectomy, 2 hernia surgeries in the remote past. Final diagnosis Sinus node dysfunction Complete heart block Cardiac pacemaker Hypertension LORAINE RAGLAND MD Apr 11, 2022 16:28
[2022-04-11] MEDS ORDERED: MAGNESIUM 1 GM/100 ML IVPB 100 ML IV ONE (16:30)
--- NOTE | 2022-04-11 17:55 | Discharge Summary ---
Discharge Summary Hospital Course Problems/Dx: (1) Third degree heart block Status: Acute (2) Hypertension Status: Acute Qualifiers: Qualified Codes: I10 - Essential (primary) hypertension Hospital Course Date of Admission: Apr 09, 2022 at 19:37 Admission Diagnosis : Third degree heart block Family Physician/Provider: Aissatou Boggs DO Date of Discharge: 04/11/22 Discharge Diagnosis: Third degree heart block Hospital Course: Simon Broussard is an 81 year old male who was admitted with third degree heart block. Cardiology was consulted and assisted with his care. He was monitored off his metoprolol but his heart block persisted. He underwent a pacemaker placement . He was restarted on metoprolol. He also had issues with hypertension and was started on HCTZ. He should follow up with Cardiology and his PCP as scheduled. He was discharged home in stable condition. Labs and Pending Lab Test: Laboratory Tests 04/11/22 06:24: White Blood Count 6.7, Red Blood Count 4.10L, Hemoglobin 13.0L, Hematocrit 41, Mean Corpuscular Volume 100H, Mean Corpuscular Hemoglobin 32, Mean Corpuscular Hemoglobin Concent 32, Red Cell Distribution Width 15.7H, Platelet Count 134, Mean Platelet Volume 10.5, Immature Granulocyte % (Auto) 0, Neutrophils (%) (Auto) 66, Lymphocytes (%) (Auto) 24, Monocytes (%) (Auto) 8, Eosinophils (%) (Auto) 1, Basophils (%) (Auto) 0, Neutrophils # (Auto) 4.4, Lymphocytes # (Auto) 1.6, Monocytes # (Auto) 0.6, Eosinophils # (Auto) 0.1, Basophils # (Auto) 0.0, Immature Granulocyte # (Auto) 0.0, Percent Immature Platelet Fraction 3.7, Sodium Level 139, Potassium Level 3.7, Chloride Level 104, Carbon Dioxide Level 19L, Anion Gap 16H, Blood Urea Nitrogen 12, Creatinine 0.92, Estimat Glomerular Filtration Rate 84, BUN/Creatinine Ratio 13, Glucose Level 85, Calcium Level 8.6, Corrected Calcium 8.9, Phosphorus Level 3.0, Magnesium Level 1.3L, Total Bilirubin 1.7H, Aspartate Amino Transf (AST/SGOT) 22, Alanine Aminotransferase (ALT/SGPT) 31, Alkaline Phosphatase 61, Total Protein 6.3L, Albumin 3.6 Home Meds Active Mag-Oxide (Magnesium Oxide) 200 Mg Magnesium Tablet 200 Mg PO BID Hydrochlorothiazide 25 Mg Tablet 25 Mg PO DAILY Metoprolol Succinate 25 Mg Tab.er.24h 25 Mg PO DAILY Reported Omeprazole 40 Mg Capsule.dr 40 Mg PO DAILY PRN Levothyroxine Sodium 50 Mcg Tablet 50 Mcg PO HS Pravastatin Sodium 40 Mg Tablet 40 Mg PO HS Assessment/Pt Instructions See instructions Discharge Planning: <30 minutes discharge planning Discharge Instructions Discharge Diet: Low Sodium Diet, Semi-Solid Diet Activity as Tolerated: Yes Consultations Cardiology Discharge Physical Examination Vital Signs Vital Signs Date Time Temp Pulse Resp B/P (MAP) Pulse Ox O2 Delivery O2 Flow Rate FiO2 04/11/22 15:43 04/11/22 08:00 95 Nasal Cannula 3.00 04/11/22 04:00 60 16 04/10/22 11:38 36.7 General Appearance: No Apparent Distress, WD/WN Respiratory: Lungs Clear, No Respiratory Distress Cardiovascular: Regular Rate, Rhythm, No Murmur Gastrointestinal: Normal Bowel Sounds, Soft Extremity: Normal Inspection, No Pedal Edema Skin: Normal Color, Warm/Dry Neurologic/Psychiatric: Alert, Normal Mood/Affect Allergies: Coded Allergies: apixaban (Unverified Allergy, Intermediate, RASH, 09/01/17) Copy Copies To 1: AISSATOU BOGGS DO Discharge Summary Date of Admission Apr 09, 2022 at 19:37 Date of Discharge Apr 11, 2022 at 16:00 Discharge Date: Apr 11, 2022 Discharge Time: 16:00 Admission Diagnosis Complete heart block Consults/Procedures Consulations Cardiology Procedures Pacemaker Discharge Diagnosis Complete heart block HTN (1) Third degree heart block Status: Acute (2) Hypertension Status: Acute Qualifiers: Qualified Codes: I10 - Essential (primary) hypertension SUSAN LIVINGSTON MD Apr 11, 2022 17:54
== END 2022-04-11 16:00 | disposition home or self-care (01) | DRG 244 ==
LOC: EDUNIT# 14:32 → ER 14:34 → ICU 19:37 → 4TH 04-11 05:06
PROVIDERS: ADMIT Internal Medicine Cardiovascular Disease; ATTEND Internal Medicine Cardiovascular Disease
PROC: 0JH606Z Insertion of Pacemaker, Dual Chamber into Chest Subcutaneous Tissue and Fascia, Open Approach (ICD-10-PCS; principal; 2022-04-10)
PROC: 02HK3JZ Insertion of Pacemaker Lead into Right Ventricle, Percutaneous Approach (ICD-10-PCS; 2022-04-10)
PROC: 02H63JZ Insertion of Pacemaker Lead into Right Atrium, Percutaneous Approach (ICD-10-PCS; 2022-04-10)
PROC: 02HV33Z Insertion of Infusion Device into Superior Vena Cava, Percutaneous Approach (ICD-10-PCS; 2022-04-10)
DX: I44.2 Atrioventricular block, complete (principal); E78.00 Pure hypercholesterolemia, unspecified; I10 Essential (primary) hypertension; K57.90 Diverticulosis of intestine, part unspecified, without perforation or abscess without bleeding; G89.29 Other chronic pain; M54.9 Dorsalgia, unspecified; K21.9 Gastro-esophageal reflux disease without esophagitis; E03.9 Hypothyroidism, unspecified; I49.5 Sick sinus syndrome; E83.42 Hypomagnesemia; F10.20 Alcohol dependence, uncomplicated; F17.210 Nicotine dependence, cigarettes, uncomplicated; Z79.82 Long term (current) use of aspirin; Z79.899 Other long term (current) drug therapy; Z86.718 Personal history of other venous thrombosis and embolism; Z90.49 Acquired absence of other specified parts of digestive tract
CPT/HCPCS: 33208; 36415; 71045; 80053; 80061; 83735; 83874; 83880; 84100; 84443; 84484; 85025; 85610; 85730; 93005; 93041; 93306

== ENCOUNTER → 2022-05-13 | Outpatient (CLI) | payer MEDICARE ==
[~2022-05-13] MED LIST changes: +HYDR25TA4 PO; +MAGN200T8 PO; +REGADENOSON 0.4 MG/5 ML SYR (LEXISCAN) IV ONE
[2022-05-13] MEDS: CATHETER FLUSH 10 ML SYR IVP PRN ×2 (08:06→09:16)
[2022-05-13 09:14] VITALS: BP 105/81
--- NOTE | 2022-05-13 14:55 | Cardiology Stress Test Report ---
Stress Test Report Date of Procedure/Referring: Date of Procedure: May 13, 2022 PCP Aissatou Rodriguez DO Admitting Physician Admitting Physician: Attending Physician: Ally Card Indications: Arrhythmia Baseline Heart Rate: 74 Baseline Blood Pressure: Blood Pressure Systolic: 105 Blood Pressure Diastolic: 81 Baseline Vitals Vital Signs Date Time Temp Pulse Resp B/P (MAP) Pulse Ox O2 Delivery O2 Flow Rate FiO2 05/13/22 09:14 66 16 105/81 (89) 97 Room Air Baseline EKG: Baseline EKG: Paced rhythm Summary After explaining the procedure to the patient, he signed a consent and then brought to the stress nuclear laboratory. Patient received 0.4 mg Lexiscan for stress test, ECG, heart rate and blood pressure were monitored continuously. Resting and stress dose of radio tracer were injected, imaging was acquired and reviewed in short axis, horizontal long axis and vertical long axis views. TID: 1.1 SSS: 10 SDS: 3 EF: 49 1. Patient tolerated Lexiscan well 2. Baseline paced rhythm persisted during test 3. Decreased uptake involving the apex, inferior apical segment and inferoseptum, mild reversibility was noted. 4. Normal left ventricular size with mild hypokinesia of the inferior wall and inferior apex. Ejection fraction 49% Copy Copies To 1: AISSATOU RODRIGUEZ BASHAR J MD May 13, 2022 14:55
== END ==
LOC: CARD 07:29
PROVIDERS: ATTEND Physician Assistant
DX: I49.8 Other specified cardiac arrhythmias (principal)
CPT/HCPCS: 78452; 93017; A9502

== ENCOUNTER 2022-05-20 08:52 | Day surgery (SDC) | payer MEDICARE ==
[2022-05-20] VITALS (11 sets, daily range): BP systolic 128–169; BP diastolic 76–89
[~2022-05-20] VITALS: Ht 162.6 cm; Wt 68.1 kg
[~2022-05-20 08:52] MED LIST changes: -REGADENOSON 0.4 MG/5 ML SYR (LEXISCAN) IV ONE
[2022-05-20] MEDS ORDERED: LIDOCAINE 1% INJ 20 ML VIAL ONE (08:59)
[2022-05-20] MEDS ORDERED: NS IV 1000 ML 1,000 ML ONE (08:59)
[2022-05-20] MEDS ORDERED: HEParin (CATH LAB) 2,000 ML IV ONE (08:59)
[2022-05-20] MEDS ORDERED: NS IV 1000 ML 1,000 ML IV SCH ×2 (09:00→12:00)
[2022-05-20 09:30] LABS: HEMATOCRIT 42 % (40-54); HEMOGLOBIN 14.4 g/dL (13.3-17.7); MEAN CORPUSCULAR HEMOGLOBIN 32 pg (25-34); MEAN CORPUSCULAR HGB CONC 34 g/dL (32-36); MEAN CORPUSCULAR VOLUME 93 fL (80-99); MEAN PLATELET VOLUME 9.8 fL (9.0-12.2); PLATELET COUNT 220 10^3/uL (130-400); WHITE BLOOD COUNT 8.3 10^3/uL (4.3-11.0)
[2022-05-20 09:32] LABS: BILIRUBIN,URINE NEGATIVE (NEGATIVE); CLARITY,URINE CLEAR; COLOR,URINE YELLOW; GLUCOSE, URINE (UA) NEGATIVE (NEGATIVE); KETONES,URINE NEGATIVE (NEGATIVE); LEUKOCYTE ESTERASE ,URINE NEGATIVE (NEGATIVE); NITRITE,URINE NEGATIVE (NEGATIVE); PROTEIN,URINE NEGATIVE (NEGATIVE)
[2022-05-20] MEDS ORDERED: MAGN400T7 PO (09:45)
[2022-05-20] MEDS ORDERED: RIVA20TA PO (09:45)
[2022-05-20] MEDS ORDERED: MTP25TSR PO (09:45)
[2022-05-20] MEDS ORDERED: LEVO50CA4 PO (09:45)
[2022-05-20] MEDS ORDERED: OMEP20CA18 PO (09:45)
[2022-05-20] MEDS ORDERED: HYDR25TA4 PO (09:45)
[2022-05-20 09:46] LABS: BACTERIA,URINE NEGATIVE /HPF; HYALINE CASTS, URINE 0-2 /LPF
[2022-05-20 09:52] LABS: PROTHROMBIN TIME PATIENT 13.2 SEC (12.2-14.7)
[2022-05-20 09:56] LABS: ALBUMIN 3.9 GM/DL (3.2-4.5); BILIRUBIN,TOTAL 1.3 MG/DL (0.1-1.0); CALCIUM 9.6 MG/DL (8.5-10.1); CREATININE SERUM 1.16 MG/DL (0.60-1.30); POTASSIUM 3.8 MMOL/L (3.6-5.0); TOTAL PROTEIN 6.8 GM/DL (6.4-8.2)
--- NOTE | 2022-05-20 09:56 | Diagnostic Imaging Report ---
Clinical indications: Precath. Patient fell this week and now having pain in the right lower rib area. EXAM: Portable chest x-ray upright view. COMPARISON: Chest x-ray dated 04/10/2022. FINDINGS: Lungs/pleura: Lungs are clear. There is no pneumothorax. There is no pleural effusion. Mediastinum: Unremarkable. Pulmonary vasculature: Unremarkable. Heart: Cardiac silhouette is within normal limits for portable projection. Cardiac pacemaker again seen stable position. Bones/extrathoracic soft tissue: There are degenerative spurs involving the thoracic spine. There is no rib fracture. IMPRESSION: 1: There is no radiographic evidence of acute cardiopulmonary process. 2: There is no fracture seen on this exam. Dictated by: Dictated on workstation # [id number]
[2022-05-20] MEDS ORDERED: MIDAZOLAM 5 MG/5 ML (VERSED) VIAL ONE (11:06)
[2022-05-20] MEDS ORDERED: HEParin 1000 UNIT/ML (10ML VIAL) FOR BOLUS ONE (11:06)
[2022-05-20] MEDS ORDERED: NITRO DRIP 25000 MCG/D5W 250 ML IV ONE (11:06)
[2022-05-20] MEDS ORDERED: VERAPAMIL 5 MG/2 ML (CALAN) VIAL IV ONE (11:06)
[2022-05-20] MEDS ORDERED: fentaNYL INJ 100 MCG/2 ML AMP ONE (11:06)
--- NOTE | 2022-05-20 11:57 | Discharge Inst-Post CATH ---
Discharge Inst-CATH/EP Problems Reviewed?: Yes Post Cardiac Cath/EP D/C Inst Follow Up/Plan Appointment with Dr. Blanc's office in 2 to 4 weeks <b>CARDIAC CATH/EP PROCEDURE DISCHARGE INSTRUCTIONS</b> ACTIVITY * Go Home directly and rest. * Limit activity of the leg (or wrist if it was used) for 7 days including aer obics, swimming, jogging, bicycling, etc. * Restrict stair-climbing for 7 days if possible, if not, climb up with your non-cath leg, then bring together on the same step. * Avoid lifting, pushing, pulling or excessive movement of the affected extremi ty for 7 days. * Customary sexual activity may be resumed after 2 days-use caution not to use a position that strains or causes pain to the affected extremity. * No driving for 24 hours. * NO SMOKING. * Avoid straining for bowel movements for 7 days. * Gentle walking on level ground is allowed. * Returning to work will depend on the type of procedure and the results. Your doctor will discuss this with you. CALL YOUR DOCTOR FOR ANY OF THE FOLLOWING: *If bleeding from the puncture site occurs- Apply gentle pressure to site with clean cloth and call your doctor or EMS. * If a knot or lump forms under the skin, increases in size, or causes pain. * If bruising appears to be worsening or moving further down your leg instead of disappearing. * Temperature above 101 F. CARE OF YOUR GROIN INCISION; * Bruising or purple discoloration of the skin near the puncture site is common. * You may shower only, no bathtub bathing for 5 days. Be careful to avoid slipping as your leg may feel stiff. * If a closure device was used on your femoral artery, please see the attached guide regarding care of the device and your leg. * Leave dressing on FOR 24 hours. CARE OF YOUR WRIST INCISION; * Bruising or purple discoloration of the skin near the puncture site is common. * You may shower. * DO NOT submerge wrist. * Leave dressing on FOR 24 hours. LORAINE BLANC MD May 20, 2022 11:57
--- NOTE | 2022-05-20 12:00 | Cardiac Cath Report ---
Cardiac Cath Report Physician (s)/Creative Producer (s) Physician LORAINE RAGLAND MD Pre-Procedure Diagnosis Pre-Procedure Diagnosis: Coronary artery disease Post-Procedure Note Procedure Start Date: May 20, 2022 Name of Procedure: Left heart catheterization Findings/Procedure Note PROCEDURE NOTE: 82 years old gentleman with history of hypertension, hyperlipidemia, had an abnormal stress test, scheduled for cardiac catheterization possible PTCA. After explaining the procedure to the patient, all pros and cons were explained, all questions were answered. The patient signed the consent and then he was placed on the cardiac catheterization laboratory. Groin was prepped SL fashion local anesthesia was used. Sheath placed in the left radial artery. Tabby right and left catheter were used to access the coronary system. Tabby right catheter was prolapsed to the left ventricular cavity, pressure was measured, pullback LV to aorta was done. At the end of the procedure the sheath was removed. Vascular band was used FINDINGS: Hemodynamics LV 109/4, end-diastolic pressure 4 Aorta 105/60 mean of 80 ANATOMY: Left Main has no obstructive disease Left Anterior Descending has 30 to 40% stenosis proximally, nonobstructive disease Left Circumflex has mild disease nonobstructive disease Right Coronary Artery is dominant artery, tortuous artery with mild disease nonobstructive disease LV Gram was not done, pressure was measured CONCLUSION: 1. 30 to 40% proximal LAD stenosis, slightly tortuous coronary system with a large dominant right coronary artery with mild small vessel disease nonobstructive disease 2. Normal left ventricular end-diastolic pressure DISCUSSION AND RECOMMENDATION: Small vessel disease with mild nonobstructive disease in the LAD. Medical therapy is recommended no intervention is recommended Anesthesia Type: Conscious Sedation Estimated blood loss (mL): 15 ml` Contrast Amount: 27 ml Total Radiation Dose: 272 mGy Post-Procedure Diagnosis Post-operative diagnosis: Chest pain Coronary artery disease Hypertension Hyperlipidemia LORAINE RAGLAND MD May 20, 2022 12:00
== END 2022-05-20 14:40 | disposition home or self-care (01) ==
LOC: CATH 08:52 → SDC 11:54 → CATH 14:40
PROVIDERS: ATTEND Internal Medicine Cardiovascular Disease
DX: I25.10 Atherosclerotic heart disease of native coronary artery without angina pectoris (principal); I10 Essential (primary) hypertension; E78.5 Hyperlipidemia, unspecified; I49.8 Other specified cardiac arrhythmias; I65.29 Occlusion and stenosis of unspecified carotid artery; I48.0 Paroxysmal atrial fibrillation
CPT/HCPCS: 71045; 80053; 80061; 81000; 85027; 85610; 85730; 87081; 93005; 93458; C1894; 36415

== ENCOUNTER → 2023-02-26 | Outpatient (CLI) | payer MEDICARE ==
[~2023-02-26] MED LIST changes: +LEVO50CA4 PO; +MAGN400T7 PO; +OMEP20CA18 PO; +RIVA20TA PO
--- NOTE | 2023-02-26 13:46 | Diagnostic Imaging Report ---
PROCEDURE: US Bilateral lower extremity arterial. INDICATION: 82-year-old male, bilateral lower extremity claudication. TECHNIQUE: Multiple real-time grayscale images were obtained over the bilateral lower extremities in in various projections. Additional duplex Doppler and color Doppler images were also obtained. COMPARISON: None FINDINGS: Right lower extremity: The major arteries of the right leg are patent to the ankle. There is detectable flow at the dorsalis pedis and posterior tibial arteries at the ankle. Multiphasic waveform is present throughout the right lower extremity arterial system. There is no focal velocity changes to suggest a hemodynamically significant stenosis. Left lower extremity: The major arteries of the left leg are patent to the ankle. There is detectable flow at the dorsalis pedis and posterior tibial arteries at the ankle. Multiphasic waveform is present throughout the left lower extremity arterial system. There is no focal velocity changes to suggest a hemodynamically significant stenosis. IMPRESSION: 1. Negative for large vessel occlusion or hemodynamically significant stenosis. Dictated by: Dictated on workstation # [id number]
== END ==
LOC: RAD 08:50
PROVIDERS: ATTEND Internal Medicine
DX: I73.9 Peripheral vascular disease, unspecified (principal)
CPT/HCPCS: 93925

== ENCOUNTER → 2023-08-25 | Outpatient (CLI) | payer MEDICARE | LOC: CARD 08:48 | PROVIDERS: ATTEND Internal Medicine Cardiovascular Disease | DX: I11.9 Hypertensive heart disease without heart failure (principal); I08.0 Rheumatic disorders of both mitral and aortic valves | CPT/HCPCS: 93306 ==